=== PATIENT | male | born 1950 | race Caucasian/White ===

== ENCOUNTER 2018-01-27 12:19 | Outpatient (CLI) | payer OTHER ==
[2018-01-27 14:11] LABS: #Basophils 0.1 thou/uL (0.0-0.2); #Eosinphils 0.2 thou/uL (0.0-0.7); #Lymphocytes 1.5 thou/uL (1.20-3.40); #Monocytes 0.7 thou/uL (0.11-0.59); #Neutrophils 5.2 thou/uL (1.40-6.50); %Basophils 0.8 % (0.0-1.0); %Eosinophils 2.3 % (0.0-10.0); %Monocytes 8.5 % (0.0-10.0); %Neutrophils 68.4 % (42.0-75.0); Hemoglobin 14.8 g/dL (14.0-18.0); Mean Corpuscular HGB CONC 31.6 g/dL (32.0-36.0); Mean Corpuscular Hemoglobin 29.6 pg (27.0-31.0); Mean Corpuscular Volume 93.8 fl (80.0-94.0); Mean Platelet Volume 8.4 fL (7.4-10.4); Platelet Count 215 thou/uL (130-400); RBC Distribution Width 13.4 % (11.5-14.5); Red Blood Cell (RBC) Count 5.01 mill/uL (4.70-6.10); White Blood Cell (WBC) Count 7.6 thou/uL (4.8-10.8)
[2018-01-27 14:16] LABS: Bilirubin Negative (Negative); Blood, Urine Negative (Negative); Clarity CLEAR (Clear); Glucose, Urine (Dipstick) Negative (Negative); Leukocyte Negative (Negative); Nitrite Negative (Negative); Protein, Urine (Dipstick) Negative (Neg-Trace); Specific Gravity, Urine 1.015 (1.002-1.036); Urobilinogen 0.2 mg/dL (0.2-1.0); pH, Urine 5.5 (5.0-9.0)
[2018-01-27 14:17] LABS: Prothrombin Time 13.6 SEC (12.0-14.7)
[2018-01-27 14:19] LABS: Bacteria/HPF None Seen HPF (None Seen); Hyaline Casts/LPF 0-3 HYALINE CAST LPF (0-3 Hyaline); RBC/HPF 0-3 HPF (0-3); Squamous Epithelial None Seen HPF (0-3); WBC/HPF None Seen HPF (0-3)
[2018-01-27 14:38] LABS: Anion Gap 13 mmol/L (10-20); BUN (Urea Nitrogen) 25 mg/dL (8.4-25.7); Calc. Creatinine Clearance 0 mL/min (70-130); Calcium 9.7 mg/dL (7.8-10.44); Carbon Dioxide 25 mmol/L (23-31); Chloride 102 mmol/L (98-107); Estimated GFR-MDRD 56; Glucose 107 mg/dL (80-115); Potassium 3.8 mmol/L (3.5-5.1); Sodium 136 mmol/L (136-145)
== END 2018-01-27 12:20 | disposition home or self-care (01) ==
LOC: LABBT 12:19
PROVIDERS: ATTEND Orthopaedic Surgery
DX: Z01.818 Encounter for other preprocedural examination (principal); M17.12 Unilateral primary osteoarthritis, left knee
CPT/HCPCS: 80048; 81001; 85025; 85610; 86850; 86900; 86901; 87081; 93005; 93010

== ENCOUNTER 2018-01-27 12:30 | Inpatient (IN) | payer OTHER ==
[2018-01-27 12:36] VITALS: BMI 33.5
[2018-02-02] MEDS ORDERED: CEFAZOLIN/Water 2 GM/20 ML SYRINGE ONE (06:12)
[2018-02-02] MEDS ORDERED: Bupivacaine 0.5% 10 ML VIAL ONE ×2 (06:16→06:25)
[2018-02-02] MEDS ORDERED: Morphine 2 MG/ML SYRINGE ONE (06:25)
[2018-02-02] MEDS ORDERED: Midazolam HCl 2 mg/2 ml Vial ONE (06:25)
[2018-02-02] MEDS ORDERED: Ropivacaine 0.2% HCl/PF 20 ML ONE (06:28)
[2018-02-02] MEDS ORDERED: Vancomycin HCl 1.5 GM in Sodium Chloride 0.9% 250 ML 300 ML IVPB SCH ×3 (06:30→20:30)
[2018-02-02 06:48] LABS: INR-International Normal Ratio 1.1; Prothrombin Time 14.1 SEC (12.0-14.7)
[2018-02-02] MEDS ORDERED: traMADol HCl 50 MG TAB PO PRN ×2 (07:08→09:01)
[2018-02-02] MEDS ORDERED: Ondansetron HCl/PF 4 MG/2 ML Vial IVP PRN ×3 (07:08→09:23)
[2018-02-02] MEDS ORDERED: Promethazine HCl 25 MG/ML VIAL IM PRN ×3 (07:08→09:23)
[2018-02-02] MEDS ORDERED: HYDROcodone/Acetaminophen 10/325 mg Tablet PO PRN (07:08)
[2018-02-02] MEDS ORDERED: Ropivacaine 0.2% 550 ML 550 ML NERVE BLCK SCH (07:08)
[2018-02-02] MEDS ORDERED: Fentanyl 100 MCG/2 ML VIAL IV PRN (07:10)
[2018-02-02] MEDS ORDERED: Tranexamic Acid 1,000 MG in Sodium Chloride 0.9% 100 ML IVPB SCH (09:00)
[2018-02-02] MEDS ORDERED: diphenhydrAMINE 25 MG CAP PO PRN (09:01)
[2018-02-02] MEDS ORDERED: Acetaminophen 325 MG TAB PO PRN (09:01)
[2018-02-02] MEDS ORDERED: Zolpidem Tartrate 5 MG TAB PO PRN (09:01)
[2018-02-02] MEDS ORDERED: Promethazine HCl 25 MG/ML VIAL SLOW IVP PRN (09:23)
[2018-02-02] MEDS ORDERED: Morphine Sulfate 2 MG/ML SYRINGE SLOW IVP PRN (09:23)
[2018-02-02] MEDS ORDERED: Ondansetron HCl/PF 4 MG/2 ML Vial ONE (09:27)
[2018-02-02] MEDS ORDERED: PROPOFOL 200 MG/20 ML VIAL ONE (09:27)
[2018-02-02] MEDS ORDERED: PHENYLEPHRINE-NS 100 MCG/ML 10 ML SYRINGE ONE (09:27)
[2018-02-02] MEDS ORDERED: Dexamethasone 20 MG/5 ML VIAL ONE (09:27)
[2018-02-02] MEDS ORDERED: Ropivacaine 0.5% HCl/PF (150 MG/30 ML VIAL) ONE (09:46)
[2018-02-02] MEDS: Sodium Chloride 0.9% 1,000 ML IV SCH ×2 (10:21→19:15)
[2018-02-02] MEDS ORDERED: Dextrose 5% in Water 1,000 ML IV PRN (11:41)
[2018-02-02] MEDS ORDERED: Dextrose 50% Abboject 50 ML SYRINGE SLOW IVP PRN (11:41)
[2018-02-02] MEDS ORDERED: HumaLOG 300 UNITS/3 ML VIAL SC PRN ×2 (11:41)
--- NOTE | 2018-02-02 11:45 | OP ---
DATE OF PROCEDURE: 02/02/2018 PREOPERATIVE DIAGNOSIS: Left knee osteoarthrosis. POSTOPERATIVE DIAGNOSIS: Left knee osteoarthrosis. PROCEDURE PERFORMED: Left total knee replacement using Leftronic pinless navigation. SURGEON: Rahat Vitale M.D. ASSISTANTS: Tae Rivera as well as DANIEL Bernard BLOOD LOSS: Minimal. COMPLICATIONS: None. He had a general anesthetic well as preoperative blocks. IMPLANTS: To the left knee is Triathlon total knee system, the femur was size 5 cruciate retaining f emur. We used a size 4 universal tibial baseplate, with 4 x 9 mm CSX3 tibial bearing and an asymmetr ic 32 x 10 X3 patella. CONDITION: He did go to the recovery room in stable condition. INDICATIONS: A 67-year-old male who has failed nonoperative treatment for left knee arthritis and at this time wished to have his knee replaced. PROCEDURE IN DETAIL: After all appropriate consent forms were explained and signed, the patient was taken back to the Operating Room and at this time was given general anesthetic. Once the level of ane sthesia was appropriate, a well-padded tourniquet was placed on the left leg and the leg was then pre pped and draped in standard surgical fashion. The limb was exsanguinated and tourniquet taken up to 3 00 mmHg. Midline incision was made with a 10 blade down through the skin and subcutaneous tissue. Bov ie electrocautery was used to coagulate any brisk venous bleeding. A new blade was used to make a med ial parapatellar arthrotomy. Small subperiosteal release was performed medially and excess fat pad wa s removed. The knee was flexed up to gain access to the femur. The femur was navigated and distal fem oral resection was made. Epicondylar access was used to align our sizing jig and this was pinned in p lace. We sized our femur to be a size 5 cruciate retaining femur, :1 cutting block was applied and pi nned. Anterior and posterior chamfer cuts were then made. We navigated out our proximal tibia and mad e our proximal tibial resection. Spreaders were used to remove any posterior osteophytes off the back of the femur as well as remaining meniscal tissue. A long alignment jaye was then used to achieve cor rect rotation of our tibial baseplate and a size 4 was chosen. This was pinned in place. We trialed t he polyethylene and a 4 x 9 mm CSX3 polyethylene gave us full extension and good stability throughout range of motion. Two towel clips and a saw were used to cut our patella. Three lug nuts were drilled and asymmetric 32 x 10 X3 patella was trialed which sat nicely in the trochlear groove. We then dril led our femur and punched our tibia. All components were removed. The knee was thoroughly irrigated a nd dried. Cement was mixed into the cement gun on the back table. Components were then placed. The kn ee was held out in full extension until the cement had dried. All excess bone cement was removed. Mu ltiple #2 Vicryl stitches as well as a Quill was used to close our extensor mechanism. 0 Quill follow ed by a running Monoderm was then used to close the skin. Surgicel glue was then used on the skin. On ce this had dried, soft tissue dressing was applied to the limb, tourniquet was let down, and the toe s pinked up nicely. The patient was then awakened and taken to the Recovery Room in stable condition . All counts were correct at the end of the case. The patient did receive preoperative IV antibiotics . The patient was injected with Exparel for postoperative pain relief.
--- NOTE | 2018-02-02 11:46 | PDOC.PN ---
- Subjective Encounter Start Date: 02/02/18 Encounter Start Time: 11:20 Subjective: no sob or palp -: moving all extremities -: numbness of left leg is weaning, on nr block - Objective MAR Reviewed: Yes Vital Signs & Weight: Vital Signs (12 hours) Temp Pulse Resp BP Pulse Ox 02/02/18 10:00 98.1 F 71 18 134/74 96 Weight Weight 240 lb Phys Exam - Physical Examination HEENT: PERRLA, moist MMs Neck: no JVD, supple Respiratory: no wheezing, no rales Cardiovascular: RRR, no significant murmur Gastrointestinal: soft, non-tender, no distention, positive bowel sounds Musculoskeletal: no edema, pulses present Neurological: non-focal, moves all 4 limbs Psychiatric: normal affect, A&O x 3 Dx/Plan (1) Status post total knee replacement, left Code(s): Z96.652 - PRESENCE OF LEFT ARTIFICIAL KNEE JOINT Status: Acute (2) LV (left ventricular) mural thrombus Code(s): [id number] - Status: Acute Comment: diagnosed 2 months back per patient (3) Cardiomyopathy Code(s): I42.9 - CARDIOMYOPATHY, UNSPECIFIED Status: Chronic Qualifiers: Cardiomyopathy type: ischemic Qualified Code(s): I25.5 - Ischemic cardiomyopathy (4) HTN (hypertension) Code(s): I10 - ESSENTIAL (PRIMARY) HYPERTENSION Status: Chronic Qualifiers: Hypertension type: essential hypertension Qualified Code(s): I10 - Essential (primary) hypertension (5) DM type 2 (diabetes mellitus, type 2) Status: Chronic Qualifiers: Diabetes mellitus mcfp insulin use: without intermediate project manager use Diabetes mellitus complication status: with unspecified complications Qualified Code(s) : E11.8 - Type 2 diabetes mellitus with unspecified complications (6) Dyslipidemia Code(s): E78.5 - HYPERLIPIDEMIA, UNSPECIFIED Status: Chronic (7) Pacemaker Code(s): Z95.0 - PRESENCE OF CARDIAC PACEMAKER Status: Chronic Comment: has AICD with dual chamber pacer (8) BPH (benign prostatic hyperplasia) Code(s): N40.0 - BENIGN PROSTATIC HYPERPLASIA WITHOUT LOWER URINRY TRACT SYMP Status: Chronic Qualifiers: Lower urinary tract symptom presence: unspecified whether lower urinary tract symptoms present Qualified Code(s): N40.0 - Benign prostatic hyperplasia without lower urinary tract symptoms - Plan is on asp daily, coreg, cozaar, lipitor and lasix -: hold spironolactone and hctz for today -: lv thrombus anticoagulation per cardio/ortho advice -: post knee dvt prophylaxis per ortho advice -: on metformin with coverage * . ropivacaine nr block, fentanyl, ultram prn for pain. Will f/u Review of Systems - Medications/Allergies Allergies/Adverse Reactions: Allergies Allergy/AdvReac Type Severity Reaction Status Date / Time No Known Allergies Allergy Verified 01/27/18 12:36 Medications: Current Medications Acetaminophen (Tylenol) 650 mg PO Q4H PRN PRN Reason: WYNNE/ T > 101F; Mild Pain (1-3) Hydrocodone Bitart/Acetaminophen ([place] 10/325) 1 tab PO Q4H PRN PRN Reason: Pain (1-3) Hydrocodone Bitart/Acetaminophen ([place] 10/325) 2 tab PO Q4H PRN PRN Reason: PAIN (4-6) Aspirin (Ecotrin) 81 mg PO DAILY [facility] Aspirin (Ecotrin) 81 mg PO DAILY [facility] Atorvastatin Calcium (Lipitor) 40 mg PO DAILY [facility] Carvedilol (Coreg) 6.25 mg PO BID [facility] Cefazolin Sodium (Ancef) 2 gm SLOW IVP 1500,2300 [facility] Stop: 02/02/18 23:01 Dextrose/Water (Dextrose 50%) 25 gm SLOW IVP PRN PRN PRN Reason: Hypoglycemia Diphenhydramine HCl (Benadryl) 25 mg PO Q6H PRN PRN Reason: Itching Fentanyl (Sublimaze) 50 mcg IV Q1H PRN PRN Reason: BREAKTHRU PAIN Ferrous Gluconate (Fergon) 324 mg PO BID [facility] Furosemide (Lasix) 40 mg PO DAILY [facility] Glucagon (Glucagon) 1 mg IM PRN PRN PRN Reason: Hypoglycemia Vancomycin HCl 1.5 gm/ Sodium (Chloride) 300 mls @ 200 mls/hr IVPB NOW [facility] Stop: 02/02/18 12:00 Last Admin: 02/02/18 10:21 Dose: Not Given Ropivacaine (Ropivacaine 0.2% 550 Ml) 550 mls @ 6 mls/hr NERVE BLCK INF [facility] Sodium Chloride (Normal Saline 0.9%) 1,000 mls @ 100 mls/hr IV .Q10H [facility] Last Admin: 02/02/18 10:21 Dose: Not Given Tranexamic Acid 1,000 mg/ (Sodium Chloride) 110 mls @ 200 mls/hr IVPB ONE [facility] Stop: 02/02/18 12:00 Vancomycin HCl 1.5 gm/ Sodium (Chloride) 300 mls @ 200 mls/hr IVPB 2030 [facility] Stop: 02/02/18 22:30 Dextrose/Water (D5w) 1,000 mls @ 0 mls/hr IV .Q0M PRN; As Directed PRN Reason: Hypoglycemia Insulin Human Lispro (Humalog) 0 units SC .MILD SLIDING SCALE PRN PRN Reason: Mild Correctional Scale Insulin Human Lispro (Humalog) 0 units SC .BEDTIME SLIDING SC PRN PRN Reason: Bedtime Correctional Scale Iron/Minerals/Multivitamins (Theragran M) 1 tab PO DAILY [facility] Ketorolac Tromethamine (Toradol) 15 mg IVP Q6H PRN PRN Reason: Moderate Pain (4-6) Stop: 02/05/18 07:09 Losartan Potassium (Cozaar) 25 mg PO DAILY [facility] Metformin HCl (Glucophage) 500 mg PO [facility] Morphine Sulfate (Pacu-Morphine Sulfate) 2 mg SLOW IVP Q10MIN PRN PRN Reason: Moderate to Severe Pain (6-10) Stop: 02/02/18 12:23 Multivitamins (Theragran) 1 tab PO DAILY [facility] Ondansetron HCl (Zofran) 4 mg IVP Q6H PRN PRN Reason: Nausea/Vomiting Ondansetron HCl (Pacu-Zofran) 4 mg IVP ONE PRN PRN Reason: Nausea/Vomiting Stop: 02/02/18 12:23 Promethazine HCl (Phenergan) 12.5 mg IM Q4H PRN PRN Reason: Nausea Promethazine HCl (Pacu-Phenergan) 6.25 mg SLOW IVP ONE PRN PRN Reason: Nausea/Vomiting Stop: 02/02/18 12:23 Promethazine HCl (Pacu-Phenergan) 6.25 mg IM ONE PRN PRN Reason: Nausea/Vomiting Stop: 02/02/18 12:23 Senna/Docusate Sodium (Senokot S) 2 tab PO BID [facility] Sodium Chloride (Flush - Normal Saline) 10 ml IVF PRN PRN PRN Reason: Saline Flush Tamsulosin HCl (Flomax) 0.4 mg PO DAILY [facility] Tramadol HCl (Ultram) 50 mg PO Q6H PRN PRN Reason: Mild Pain (1-3) Tramadol HCl (Ultram) 100 mg PO Q6H PRN PRN Reason: Moderate Pain 4-6 Zolpidem Tartrate (Ambien) 5 mg PO HSPRN PRN PRN Reason: Insomnia
[2018-02-02] MEDS: CEFAZOLIN/Water 2 GM/20 ML SYRINGE SLOW IVP SCH ×2 (15:03→23:24)
[2018-02-02] MEDS: Carvedilol 6.25 MG TAB PO SCH (21:26)
[2018-02-02] MEDS: Zolpidem Tartrate 5 MG TAB PO PRN (23:36)
[2018-02-03] MEDS: Sodium Chloride 0.9% 1,000 ML IV SCH ×2 (04:19→16:59)
[2018-02-03 06:01] LABS: INR-International Normal Ratio 2.1; PTT 39.9 SEC (22.9-36.1); Prothrombin Time 24.2 SEC (12.0-14.7)
[2018-02-03 06:02] LABS: Hemoglobin 11.7 g/dL (14.0-18.0); Mean Corpuscular HGB CONC 31.6 g/dL (32.0-36.0); Mean Corpuscular Hemoglobin 29.3 pg (27.0-31.0); Mean Corpuscular Volume 92.6 fl (80.0-94.0); Mean Platelet Volume 8.4 fL (7.4-10.4); Platelet Count 190 thou/uL (130-400); RBC Distribution Width 13.1 % (11.5-14.5)
[2018-02-03 06:19] LABS: Anion Gap 13 mmol/L (10-20); BUN (Urea Nitrogen) 26 mg/dL (8.4-25.7); Calc. Creatinine Clearance 85 mL/min (70-130); Carbon Dioxide 24 mmol/L (23-31); Chloride 107 mmol/L (98-107); Estimated GFR-MDRD 56; Glucose 127 mg/dL (80-115); Potassium 4.6 mmol/L (3.5-5.1); Sodium 139 mmol/L (136-145)
[2018-02-03] MEDS: HYDROcodone/Acetaminophen 10/325 mg Tablet PO PRN ×2 (07:33→12:00)
[2018-02-03] MEDS: Losartan 25 MG TAB PO SCH (07:34)
[2018-02-03] MEDS: Carvedilol 6.25 MG TAB PO SCH ×2 (07:34→21:32)
[2018-02-03] MEDS: Aspirin 81 mg Enteric Coated Tablet PO SCH ×2 (07:34→16:57)
[2018-02-03] MEDS: Ferrous Gluconate 324 MG TAB PO SCH ×2 (07:35→21:32)
[2018-02-03] MEDS: Furosemide 40 MG TAB PO SCH (07:35)
[2018-02-03] MEDS: Senokot S 8.6-50 MG TAB PO SCH ×2 (07:35→21:31)
[2018-02-03] MEDS: metFORMIN 500 MG TAB PO SCH (07:35)
[2018-02-03] MEDS: Tamsulosin HCl 0.4 MG CAP PO SCH (07:35)
[2018-02-03] MEDS: Atorvastatin Calcium 40 MG TAB PO SCH (07:36)
[2018-02-03] MEDS: Multivitamin W/ Minerals 1 TAB PO SCH (07:36)
--- NOTE | 2018-02-03 08:23 | CON ---
DATE OF CONSULTATION: 02/02/2018 REASON FOR CONSULTATION: Assist with anticoagulation therapy and management. HISTORY OF PRESENT ILLNESS: Mr. Contreras is a very pleasant 67-year-old gentleman with previous histor y of nonischemic cardiomyopathy, who recently underwent knee surgery. From a CV standpoint, Mr. Contreras recently was diagnosed with an apical thrombus. He was placed on an ticoagulation therapy. He has been off anticoagulation therapy for the last 7 days in preparation fo r surgery. PAST MEDICAL HISTORY: As above. HOME MEDICATIONS: Include aspirin, losartan, Coreg, Zocor, and Eliquis. ALLERGIES: PENICILLIN. FAMILY HISTORY: Negative for CAD. SOCIAL HISTORY: No current tobacco or alcohol use. REVIEW OF SYSTEMS: Ten-point review of systems reviewed and as above, otherwise negative. PHYSICAL EXAMINATION: VITAL SIGNS: Blood pressure 134/74, pulse 71, temperature 98.1. GENERAL: Patient is a pleasant male, who is in no acute distress. The patient appears his stated ag e. NEUROLOGIC: The patient is alert and oriented times 3 with no focal neurologic deficits. HEENT: Sclerae without icterus. Mouth has moist mucous membranes with normal pallor. NECK: No JVD. Carotid upstroke brisk. No bruits bilaterally. LUNGS: Clear to auscultation with unlabored respirations. BACK: No scoliosis or kyphosis. CARDIAC: Regular rate and rhythm with normal S1 and S2. No S3 or S4 noted. No significant rubs, mu rmurs, thrills, or gallops noted throughout the precordium. PMI is not displaced. There is no ana lilia ternal heave. ABDOMEN: Soft, nontender, nondistended. No peritoneal signs present. No hepatosplenomegaly. No abnormal striae. EXTREMITIES: 2+ femoral and 2+ dorsalis pedis pulses. No cyanosis, clubbing, or edema. SKIN: No gross abnormalities. IMPRESSION: 1. Apical thrombus. 2. Nonischemic cardiomyopathy. RECOMMENDATIONS: From a CV standpoint, I recommend restarting anticoagulation therapy once feasible per Dr. Rahat Vitale. After discussion with Dr. Rahat Vitale, it sounds like tomorrow will be his firs t dose of Eliquis. I would certainly agree. Otherwise, we will continue rehabilitation as recommend ed. We would recommend continuing to keep patient in ortho.
[2018-02-03] MEDS ORDERED: Hydrochlorothiazide 25 MG TAB PO SCH (09:00)
[2018-02-03] MEDS ORDERED: Spironolactone 25 MG TAB PO SCH (09:00)
--- NOTE | 2018-02-03 16:49 | PDOC.PN ---
- Subjective Encounter Start Date: 02/03/18 Encounter Start Time: 10:00 Patient is seen today, sitting on chair with leg extended, pain is well controlled. pt is Started on Eliquis today. - Objective MAR Reviewed: Yes Vital Signs & Weight: Vital Signs (12 hours) Temp Pulse Resp BP BP BP Pulse Ox 02/03/18 15:22 97.5 F L 76 16 126/79 94 L 02/03/18 11:00 97.5 F L 72 18 111/71 98 02/03/18 08:10 98.4 F 70 18 94/56 L 93 L 02/03/18 08:00 98.4 F 70 18 93 L 02/03/18 07:34 132/63 Weight Admit Weight 240 lb Weight 240 lb I&O: 02/02/18 02/03/18 02/04/18 06:59 06:59 06:59 Intake Total 2600 Output Total 950 Balance 1650 Result Diagrams: 02/03/18 05:22 02/03/18 05:22 Additional Labs: Accuchecks 02/03/18 02/03/18 02/03/18 16:14 11:05 05:29 POC Glucose 167 H 116 H 117 H 02/02/18 20:33 POC Glucose 185 H Radiology Reviewed by me: Yes EKG Reviewed by me: Yes Phys Exam - Physical Examination HEENT: PERRLA Neck: no nodes, no JVD Respiratory: no wheezing, no rales Cardiovascular: RRR, no significant murmur Gastrointestinal: soft, non-tender Musculoskeletal: no edema, pulses present Neurological: non-focal, normal sensation Dx/Plan (1) Status post total knee replacement, left Code(s): Z96.652 - PRESENCE OF LEFT ARTIFICIAL KNEE JOINT Status: Acute Comment: pain is well controlled, PT/OT, plan for ortho (2) BPH (benign prostatic hyperplasia) Code(s): N40.0 - BENIGN PROSTATIC HYPERPLASIA WITHOUT LOWER URINRY TRACT SYMP Status: Chronic Qualifiers: Lower urinary tract symptom presence: unspecified whether lower urinary tract symptoms present Qualified Code(s): N40.0 - Benign prostatic hyperplasia without lower urinary tract symptoms (3) Cardiomyopathy Code(s): I42.9 - CARDIOMYOPATHY, UNSPECIFIED Status: Chronic Qualifiers: Cardiomyopathy type: ischemic Qualified Code(s): I25.5 - Ischemic cardiomyopathy Comment: Patient is on BB, rstarted on Eliquis (4) DM type 2 (diabetes mellitus, type 2) Status: Chronic Qualifiers: Diabetes mellitus half-way insulin use: without termite control servicer use Diabetes mellitus complication status: with unspecified complications Qualified Code(s) : E11.8 - Type 2 diabetes mellitus with unspecified complications Comment: [place], Well controlled BG in range. (5) Dyslipidemia Code(s): E78.5 - HYPERLIPIDEMIA, UNSPECIFIED Status: Chronic Comment: stbale on Statins (6) HTN (hypertension) Code(s): I10 - ESSENTIAL (PRIMARY) HYPERTENSION Status: Chronic Qualifiers: Hypertension type: essential hypertension Qualified Code(s): I10 - Essential (primary) hypertension Comment: well controllled will continue to Monitor. - Plan cont current plan of care, plan discussed w/ family, PT/OT, incentive spirometry , DVT proph w/lovenox * . - Discharge Day Encounter end time: 10:35 Review of Systems - Review of Systems Eyes: negative: Pain, Vision Change, Conjunctivae Inflammation, Eyelid Inflammation, Redness, Other ENT: negative: Ear Pain, Ear Discharge, Nose Pain, Nose Discharge, Nose Congestion, Mouth Pain, Mouth Swelling, Throat Pain, Throat Swelling, Other Respiratory: negative: Cough, Dry, Shortness of Breath, Hemoptysis, SOB with Excertion, Pleuritic Pain, Sputum, Wheezing Cardiovascular: negative: chest pain, palpitations, orthopnea, paroxysmal nocturnal dyspnea, edema, light headedness, other Genitourinary: negative: Dysuria, Frequency, Incontinence, Hematuria, Retention , Other Musculoskeletal: negative: Neck Pain, Shoulder Pain, Arm Pain, Back Pain, Hand Pain, Leg Pain, Foot Pain, Other Skin: negative: Rash, Lesions, Ehsan, Bruising, Other - Medications/Allergies Allergies/Adverse Reactions: Allergies Allergy/AdvReac Type Severity Reaction Status Date / Time No Known Allergies Allergy Verified 01/27/18 12:36 Medications: Current Medications Acetaminophen (Tylenol) 650 mg PO Q4H PRN PRN Reason: WYNNE/ T > 101F; Mild Pain (1-3) Hydrocodone Bitart/Acetaminophen ([place] 10/325) 1 tab PO Q4H PRN PRN Reason: Pain (1-3) Hydrocodone Bitart/Acetaminophen ([place] 10/325) 2 tab PO Q4H PRN PRN Reason: PAIN (4-6) Last Admin: 02/03/18 12:00 Dose: 2 tab Aspirin (Ecotrin) 81 mg PO DAILY [facility] Last Admin: 02/03/18 07:34 Dose: 81 mg Aspirin (Ecotrin) 81 mg PO DAILY [facility] Atorvastatin Calcium (Lipitor) 40 mg PO DAILY [facility] Last Admin: 02/03/18 07:36 Dose: 40 mg Carvedilol (Coreg) 6.25 mg PO BID [facility] Last Admin: 02/03/18 07:34 Dose: 6.25 mg Dextrose/Water (Dextrose 50%) 25 gm SLOW IVP PRN PRN PRN Reason: Hypoglycemia Diphenhydramine HCl (Benadryl) 25 mg PO Q6H PRN PRN Reason: Itching Fentanyl (Sublimaze) 50 mcg IV Q1H PRN PRN Reason: BREAKTHRU PAIN Ferrous Gluconate (Fergon) 324 mg PO BID [facility] Last Admin: 02/03/18 07:35 Dose: 324 mg Furosemide (Lasix) 40 mg PO DAILY [facility] Last Admin: 02/03/18 07:35 Dose: 40 mg Glucagon (Glucagon) 1 mg IM PRN PRN PRN Reason: Hypoglycemia Ropivacaine (Ropivacaine 0.2% 550 Ml) 550 mls @ 6 mls/hr NERVE BLCK INF [facility] Sodium Chloride (Normal Saline 0.9%) 1,000 mls @ 100 mls/hr IV .Q10H [facility] Last Admin: 02/03/18 04:19 Dose: Not Given Dextrose/Water (D5w) 1,000 mls @ 0 mls/hr IV .Q0M PRN; As Directed PRN Reason: Hypoglycemia Insulin Human Lispro (Humalog) 0 units SC .MILD SLIDING SCALE PRN PRN Reason: Mild Correctional Scale Insulin Human Lispro (Humalog) 0 units SC .BEDTIME SLIDING SC PRN PRN Reason: Bedtime Correctional Scale Iron/Minerals/Multivitamins (Theragran M) 1 tab PO DAILY [facility] Last Admin: 02/03/18 07:36 Dose: 1 tab Ketorolac Tromethamine (Toradol) 15 mg IVP Q6H PRN PRN Reason: Moderate Pain (4-6) Stop: 02/05/18 07:09 Losartan Potassium (Cozaar) 25 mg PO DAILY [facility] Last Admin: 02/03/18 07:34 Dose: 25 mg Metformin HCl (Glucophage) 500 mg PO QAM-WM [facility] Last Admin: 02/03/18 07:35 Dose: 500 mg Multivitamins (Theragran) 1 tab PO DAILY [facility] Ondansetron HCl (Zofran) 4 mg IVP Q6H PRN PRN Reason: Nausea/Vomiting Promethazine HCl (Phenergan) 12.5 mg IM Q4H PRN PRN Reason: Nausea Senna/Docusate Sodium (Senokot S) 2 tab PO BID [facility] Last Admin: 02/03/18 07:35 Dose: 2 tab Sodium Chloride (Flush - Normal Saline) 10 ml IVF PRN PRN PRN Reason: Saline Flush Tamsulosin HCl (Flomax) 0.4 mg PO DAILY [facility] Last Admin: 02/03/18 07:35 Dose: 0.4 mg Tramadol HCl (Ultram) 50 mg PO Q6H PRN PRN Reason: Mild Pain (1-3) Tramadol HCl (Ultram) 100 mg PO Q6H PRN PRN Reason: Moderate Pain 4-6 Zolpidem Tartrate (Ambien) 5 mg PO HSPRN PRN PRN Reason: Insomnia Last Admin: 02/02/18 23:36 Dose: 5 mg
[2018-02-03] MEDS: Multivit, Therapeutic 1 TAB PO SCH (16:57)
[2018-02-03] MEDS: Ketorolac Tromethamine 30 MG/ML VIAL IVP PRN (18:13)
[2018-02-03] MEDS ORDERED: Apixaban 5 MG TAB PO SCH (18:45)
[2018-02-03] MEDS: Zolpidem Tartrate 5 MG TAB PO PRN (21:36)
[2018-02-03] MEDS: traMADol HCl 50 MG TAB PO PRN (21:37)
[2018-02-04] MEDS: Sodium Chloride 0.9% 1,000 ML IV SCH ×3 (01:57→21:04)
[2018-02-04 04:27] LABS: Hemoglobin 11.1 g/dL (14.0-18.0); Mean Corpuscular HGB CONC 32.4 g/dL (32.0-36.0); Mean Corpuscular Hemoglobin 29.9 pg (27.0-31.0); Mean Corpuscular Volume 92.1 fl (80.0-94.0); Mean Platelet Volume 8.1 fL (7.4-10.4); Platelet Count 158 thou/uL (130-400); RBC Distribution Width 13.3 % (11.5-14.5); Red Blood Cell (RBC) Count 3.71 mill/uL (4.70-6.10); White Blood Cell (WBC) Count 9.9 thou/uL (4.8-10.8)
[2018-02-04] MEDS: metFORMIN 500 MG TAB PO SCH (08:01)
[2018-02-04] MEDS: Senokot S 8.6-50 MG TAB PO SCH ×2 (08:01→21:06)
[2018-02-04] MEDS: traMADol HCl 50 MG TAB PO PRN ×2 (08:02→15:28)
[2018-02-04] MEDS: Furosemide 40 MG TAB PO SCH (08:02)
[2018-02-04] MEDS: Multivitamin W/ Minerals 1 TAB PO SCH (08:02)
[2018-02-04] MEDS: Atorvastatin Calcium 40 MG TAB PO SCH (08:02)
[2018-02-04] MEDS: Tamsulosin HCl 0.4 MG CAP PO SCH (08:03)
[2018-02-04] MEDS: Ferrous Gluconate 324 MG TAB PO SCH ×2 (08:03→21:05)
[2018-02-04] MEDS: Aspirin 81 mg Enteric Coated Tablet PO SCH ×2 (08:03→08:04)
[2018-02-04] MEDS: Multivit, Therapeutic 1 TAB PO SCH (08:04)
[2018-02-04] MEDS: Carvedilol 6.25 MG TAB PO SCH ×2 (08:10→21:05)
[2018-02-04] MEDS: Losartan 25 MG TAB PO SCH (08:10)
[2018-02-04] MEDS ORDERED: ISOVUE-370 76%-LOCM 1 ML ONE (09:33)
--- NOTE | 2018-02-04 13:12 | CT ---
CT ANGIO NECK WITH CONTRAST: Date: 02/04/18 Multiple axial tomograms obtained through neck following angio protocol with multiplanar reconstructi on and 3D postprocessing. INDICATIONS: Right hemianopsia. Loss of vision in right eye. FINDINGS: There is mild atherosclerotic change at the origin of the arch vessels; however, no stenosis identifi ed at the origin of the arch vessels. Left common carotid artery is unremarkable with minimal atherosclerotic change. There is atherosclerotic change seen at the left bulb and proximal left ICA. Mild calcification and s oft thrombus is present. This does result in mild to moderate stenosis in the proximal left ICA. Degr ee of stenosis is estimated in the 40% range according to NASCET criteria when comparison is made to the more distal left ICA lumen diameter. Right common carotid is unremarkable with mild atherosclerotic change. There is mild atherosclerotic change in the right bulb and proximal right ICA with both calcified and soft plaque present. This does not appear to result in significant stenosis. There is mild irregular ity in the lumen. The more distal ICA appears unremarkable bilaterally. Vertebral arteries are patent and symmetric. Images of the visualized lung cristobal show a focal area of pleural based opacity in the peripheral lef t mid lung measuring approximately 1.5 cm. This may represent a focal area of pleural based atelectas is; however, further evaluation with chest CT is recommended. IMPRESSION: 1. Mild to moderate atherosclerotic changes in both bulbs and proximal ICAs. There is moderate steno sis in the proximal left ICA as described above. 2. Images through the lungs reveal a pleural based opacity in the peripheral left lung measuring up to 1.5 cm. Recommend further evaluation with elective chest CT. POS: OFF
[2018-02-04] MEDS: Apixaban 5 MG TAB PO SCH (17:32)
[2018-02-04] MEDS: Ketorolac Tromethamine 30 MG/ML VIAL IVP PRN (17:39)
--- NOTE | 2018-02-04 19:30 | CON ---
DATE OF CONSULTATION: 02/04/2018 REFERRING PHYSICIAN: Dr. Rahat Vitale. REASON FOR CONSULTATION: Acute onset left side vision loss. HISTORY OF PRESENT ILLNESS: Mr. Contreras is a pleasant 67-year-old male who has been consulted for evaluation of acute onset left-sided vision loss. History is obtained from daughter who was present at bedside. Daughter reports that patient was undergoing left total knee replacement. He has a history of apical thrombus in his heart. This was diagnosed in October of last year. He has been on Eliquis 5 mg once a day for this. In anticipation for the surgery on , he was asked to hold the Eliquis for 2 days before the surgery. On yesterday, patient started noticing blurred vision. Around lunchtime, at noon, he noticed a sudden onset of dizziness and feeling off balance. He also noticed vision loss in the left eye. He did not report this to anyone and it was felt that it may have been just due to the medication that he received for his pain. His vision continued to be not improved for which he had told the physician Dr. Vitale today. He states that he has a loss of vision in the left side. He denies any headache, chest pain, palpitation, numbness, tingling on his face or upper extremities. He denies any weakness in upper extremities or right lower extremity. He denies changes in speech or swallowing. PAST MEDICAL HISTORY: Significant for apical thrombus. PAST SURGICAL HISTORY: Significant for recent left total knee replacement. SOCIAL HISTORY: Denies smoking, alcohol use, or illicit drug use. FAMILY HISTORY: Noncontributory. CURRENT MEDICATIONS: Include aspirin, losartan, Coreg, Zocor, and Eliquis. ALLERGIES: Include PENICILLIN. REVIEW OF SYSTEMS: As mentioned, which was negative. PHYSICAL EXAMINATION: VITAL SIGNS: Blood pressure of 119/55, pulse of 72, temperature of 98.1, respirations of 16, O2 sats of 94% on room air. GENERAL: Well-developed, well-nourished male, in no apparent distress. RESPIRATORY: Clear to auscultation bilaterally. CARDIOVASCULAR: Regular rate and rhythm. NEUROLOGIC: Mental status: The patient is awake, alert, oriented x3. Speech and language: Fluent speech. Cranial nerves: Pupils are 3 mm and reactive. He has a left homonymous hemianopsia. Face is symmetric. Tongue and uvula are midline. Motor exam showed normal tone and bulk with a 5/5 strength in both upper extremities and right lower extremity. Sensory: Sensation is intact and symmetric. Deep tendon reflexes 2+ reflexes. Babinski: Plantar responses flexion bilaterally. Coordination intact to [id number] and finger tapping bilaterally. LABORATORY DATA: Reviewed, which included CBC and BMP, which is significant for hemoglobin of 11.1, hematocrit 34.2, glucose of 167, otherwise unremarkable. IMAGING STUDIES: CT angiogram of the neck was reviewed, which showed mild to moderate atherosclerotic changes in both carotid bulbs with 40% stenosis of the proximal left ICA. There was a pleural-based opacity in the peripheral left lung. IMPRESSION: 1. Right occipital ischemic infarct. 2. A 40% right, 40% left ICA stenosis. PLAN: Mr. Contreras is a pleasant 67-year-old male with a history of apical thrombus, who has undergone a left total knee replacement, has noted sudden onset of vision loss in the left side. On exam, he has a left homonymous hemianopsia, this would suggest the right occipital lobe ischemic infarct. This is likely embolic in nature. At this time, I agree with restarting him on Eliquis for secondary stroke prevention. I have discussed with the patient and his daughter and explained that he should not drive until cleared by ophthalmology or by me in my clinic. I will be happy to see him in my clinic in 4-6 weeks post-discharge. I have told him that the recovery is questionable at this point. I will obtain MRI brain without contrast in the morning. I would recommend a consulting stroke team for completion of the stroke core measures. I will be happy to see this patient in my clinic 6 weeks post-discharge. MARGO
[2018-02-05 05:12] LABS: Hemoglobin 11.3 g/dL (14.0-18.0); Mean Corpuscular HGB CONC 33.1 g/dL (32.0-36.0); Mean Corpuscular Hemoglobin 30.2 pg (27.0-31.0); Mean Corpuscular Volume 91.4 fl (80.0-94.0); Mean Platelet Volume 7.8 fL (7.4-10.4); Platelet Count 158 thou/uL (130-400); Red Blood Cell (RBC) Count 3.73 mill/uL (4.70-6.10); White Blood Cell (WBC) Count 8.6 thou/uL (4.8-10.8)
[2018-02-05] MEDS: traMADol HCl 50 MG TAB PO PRN ×3 (07:54→20:17)
[2018-02-05] MEDS: Losartan 25 MG TAB PO SCH (08:32)
[2018-02-05] MEDS: Senokot S 8.6-50 MG TAB PO SCH ×2 (08:33→20:17)
[2018-02-05] MEDS: Aspirin 81 mg Enteric Coated Tablet PO SCH (08:34)
[2018-02-05] MEDS: Multivitamin W/ Minerals 1 TAB PO SCH (08:34)
[2018-02-05] MEDS: Multivit, Therapeutic 1 TAB PO SCH (08:34)
[2018-02-05] MEDS: Ferrous Gluconate 324 MG TAB PO SCH ×2 (08:34→20:18)
[2018-02-05] MEDS: metFORMIN 500 MG TAB PO SCH (08:34)
[2018-02-05] MEDS: Furosemide 40 MG TAB PO SCH (08:34)
[2018-02-05] MEDS: Carvedilol 6.25 MG TAB PO SCH ×2 (08:34→20:18)
[2018-02-05] MEDS: Tamsulosin HCl 0.4 MG CAP PO SCH (08:35)
[2018-02-05] MEDS: Atorvastatin Calcium 40 MG TAB PO SCH (08:35)
--- NOTE | 2018-02-05 09:45 | PDOC.PN ---
- Subjective Encounter Start Date: 02/04/18 Encounter Start Time: 13:00 Patient is seen today, alert and oriented, he is c/o Reduced vision in right Eye since this morning, Pt had MRI which did confirm infacrt of occipetal lobe, - Objective MAR Reviewed: Yes Vital Signs & Weight: Vital Signs (12 hours) Temp Pulse Resp BP BP BP Pulse Ox 02/05/18 08:34 119/73 02/05/18 08:00 98.3 F 65 18 02/05/18 07:30 98.3 F 65 18 154/73 H 95 02/05/18 04:18 97.5 F L 63 20 121/67 93 L 02/04/18 23:59 97.4 F L 67 16 126/71 92 L Weight Admit Weight 240 lb Weight 240 lb I&O: 02/04/18 02/05/18 02/06/18 06:59 06:59 06:59 Intake Total 600 480 Output Total 400 100 Balance 200 380 Result Diagrams: 02/05/18 04:45 02/03/18 05:22 Additional Labs: Accuchecks 02/05/18 02/04/18 02/04/18 06:00 21:15 16:03 POC Glucose 114 H 124 H 118 H 02/04/18 11:03 POC Glucose 109 Radiology Reviewed by me: Yes EKG Reviewed by me: Yes Phys Exam - Physical Examination Right Reduced/ loss of vision, pupil reflex normal. Neck: no nodes, no JVD Respiratory: no wheezing, no rales Cardiovascular: RRR, no significant murmur Gastrointestinal: soft, non-tender Musculoskeletal: no edema, pulses present Neurological: non-focal, normal sensation Lymphatic: no nodes Psychiatric: normal affect, A&O x 3 Dx/Plan (1) Status post total knee replacement, left Code(s): Z96.652 - PRESENCE OF LEFT ARTIFICIAL KNEE JOINT Status: Acute Comment: pain is well controlled, PT/OT, plan for ortho (2) BPH (benign prostatic hyperplasia) Code(s): N40.0 - BENIGN PROSTATIC HYPERPLASIA WITHOUT LOWER URINRY TRACT SYMP Status: Chronic Qualifiers: Lower urinary tract symptom presence: unspecified whether lower urinary tract symptoms present Qualified Code(s): N40.0 - Benign prostatic hyperplasia without lower urinary tract symptoms Comment: stbale, normal urination. (3) Cardiomyopathy Code(s): I42.9 - CARDIOMYOPATHY, UNSPECIFIED Status: Chronic Qualifiers: Cardiomyopathy type: ischemic Qualified Code(s): I25.5 - Ischemic cardiomyopathy Comment: Patient is on BB, rstarted on Eliquis (4) DM type 2 (diabetes mellitus, type 2) Status: Chronic Qualifiers: Diabetes mellitus manager terminal insulin use: without manager terminal use Diabetes mellitus complication status: with unspecified complications Qualified Code(s) : E11.8 - Type 2 diabetes mellitus with unspecified complications Comment: Stbale, Well controlled BG in range. (5) Dyslipidemia Code(s): E78.5 - HYPERLIPIDEMIA, UNSPECIFIED Status: Chronic Comment: stbale on Statins (6) HTN (hypertension) Code(s): I10 - ESSENTIAL (PRIMARY) HYPERTENSION Status: Chronic Qualifiers: Hypertension type: essential hypertension Qualified Code(s): I10 - Essential (primary) hypertension Comment: well controllled will continue to Monitor. (7) Occipital cerebral infarction Code(s): I63.9 - CEREBRAL INFARCTION, UNSPECIFIED Status: Acute Comment: MRI confirmed Stroke ischemic likely from thromboembolism from left ventricle clot, MRI confirmed, pt is on Eliquis, No TPA offered due to high risk of bleeding due to major knee surgery. - Plan cont current plan of care, PT/OT, social media specialist, incentive spirometry, out of bed/ambulate, DVT proph w/lovenox * . - Discharge Day Encounter end time: 13:35 Review of Systems - Review of Systems Eyes: Vision Change ENT: negative: Ear Pain, Ear Discharge, Nose Pain, Nose Discharge, Nose Congestion, Mouth Pain, Mouth Swelling, Throat Pain, Throat Swelling, Other Respiratory: negative: Cough, Dry, Shortness of Breath, Hemoptysis, SOB with Excertion, Pleuritic Pain, Sputum, Wheezing Cardiovascular: negative: chest pain, palpitations, orthopnea, paroxysmal nocturnal dyspnea, edema, light headedness, other Gastrointestinal: negative: Nausea, Vomiting, Abdominal Pain, Diarrhea, Constipation, Melena, Hematochezia, Other Musculoskeletal: negative: Neck Pain, Shoulder Pain, Arm Pain, Back Pain, Hand Pain, Leg Pain, Foot Pain, Other Neurological: Other (Reduced vision right eye). negative: Weakness, Numbness, Incoordination, Change in Speech, Confusion, Seizures - Medications/Allergies Allergies/Adverse Reactions: Allergies Allergy/AdvReac Type Severity Reaction Status Date / Time No Known Allergies Allergy Verified 01/27/18 12:36 Medications: Current Medications Acetaminophen (Tylenol) 650 mg PO Q4H PRN PRN Reason: WYNNE/ T > 101F; Mild Pain (1-3) Hydrocodone Bitart/Acetaminophen ([place] 10/325) 1 tab PO Q4H PRN PRN Reason: Pain (1-3) Hydrocodone Bitart/Acetaminophen ([place] 10/325) 2 tab PO Q4H PRN PRN Reason: PAIN (4-6) Last Admin: 02/03/18 12:00 Dose: 2 tab Apixaban (Eliquis) 5 mg PO 1700 [facility] Last Admin: 02/04/18 17:32 Dose: 5 mg Aspirin (Ecotrin) 81 mg PO DAILY [facility] Last Admin: 02/05/18 08:34 Dose: 81 mg Atorvastatin Calcium (Lipitor) 40 mg PO DAILY [facility] Last Admin: 02/05/18 08:35 Dose: 40 mg Carvedilol (Coreg) 6.25 mg PO BID [facility] Last Admin: 02/05/18 08:34 Dose: 6.25 mg Dextrose/Water (Dextrose 50%) 25 gm SLOW IVP PRN PRN PRN Reason: Hypoglycemia Diphenhydramine HCl (Benadryl) 25 mg PO Q6H PRN PRN Reason: Itching Fentanyl (Sublimaze) 50 mcg IV Q1H PRN PRN Reason: BREAKTHRU PAIN Ferrous Gluconate (Fergon) 324 mg PO BID [facility] Last Admin: 02/05/18 08:34 Dose: 324 mg Furosemide (Lasix) 40 mg PO DAILY [facility] Last Admin: 02/05/18 08:34 Dose: 40 mg Glucagon (Glucagon) 1 mg IM PRN PRN PRN Reason: Hypoglycemia Ropivacaine (Ropivacaine 0.2% 550 Ml) 550 mls @ 6 mls/hr NERVE BLCK INF [facility] Dextrose/Water (D5w) 1,000 mls @ 0 mls/hr IV .Q0M PRN; As Directed PRN Reason: Hypoglycemia Insulin Human Lispro (Humalog) 0 units SC .MILD SLIDING SCALE PRN PRN Reason: Mild Correctional Scale Insulin Human Lispro (Humalog) 0 units SC .BEDTIME SLIDING SC PRN PRN Reason: Bedtime Correctional Scale Iron/Minerals/Multivitamins (Theragran M) 1 tab PO DAILY [facility] Last Admin: 02/05/18 08:34 Dose: 1 tab Losartan Potassium (Cozaar) 25 mg PO DAILY [facility] Last Admin: 02/05/18 08:32 Dose: 25 mg Metformin HCl (Glucophage) 500 mg PO QAM-WM [facility] Last Admin: 02/05/18 08:34 Dose: 500 mg Multivitamins (Theragran) 1 tab PO DAILY [facility] Last Admin: 02/05/18 08:34 Dose: 1 tab Ondansetron HCl (Zofran) 4 mg IVP Q6H PRN PRN Reason: Nausea/Vomiting Promethazine HCl (Phenergan) 12.5 mg IM Q4H PRN PRN Reason: Nausea Senna/Docusate Sodium (Senokot S) 2 tab PO BID [facility] Last Admin: 02/05/18 08:33 Dose: 2 tab Sodium Chloride (Flush - Normal Saline) 10 ml IVF PRN PRN PRN Reason: Saline Flush Tamsulosin HCl (Flomax) 0.4 mg PO DAILY [facility] Last Admin: 02/05/18 08:35 Dose: 0.4 mg Tramadol HCl (Ultram) 50 mg PO Q6H PRN PRN Reason: Mild Pain (1-3) Last Admin: 02/04/18 21:21 Dose: 50 mg Tramadol HCl (Ultram) 100 mg PO Q6H PRN PRN Reason: Moderate Pain 4-6 Last Admin: 02/05/18 07:54 Dose: 100 mg Zolpidem Tartrate (Ambien) 5 mg PO HSPRN PRN PRN Reason: Insomnia Last Admin: 02/03/18 21:36 Dose: 5 mg
--- NOTE | 2018-02-05 12:26 | PRG ---
DATE OF SERVICE: 02/05/2018 SUBJECTIVE: Arun has been on the stroke unit overnight monitored and he has actually had an impro vement in his vision. He is now taking tramadol for pain and tolerating this relatively well. He is postop day #[address] Mccall has seen and evaluated the patient and concluded he had a sma ll occipital lobe ischemia. He has contraindication for MRI due to his implantable defibrillator. O verall, Arun feels better today. His pain is tolerating relatively well. He has been up back and forth to the bathroom and physical therapy has been reconsulted and is visiting with him currently. OBJECTIVE: VITAL SIGNS: He is more alert today. Grossly nonfocal. GENERAL: He is alert and oriented to person, place, time, and situation. MUSCULOSKELETAL: Incision is clean, no strike through, redressed. Neurovascularly intact in the inv olved extremities. IMPRESSION: 1. A 67-year-old white male postoperative day #3, left total knee arthroplasty, doing relatively wel l. 2. Cerebral (occipital lobe ischemia with hemianopsia). PLAN: 1. Continue current care. Physical therapy has been reconsulted. Give consideration to ophthalmolo gic evaluation for quantification of visual field deficits and improvement thereof. 2. We will recheck the patient tomorrow.
--- NOTE | 2018-02-05 16:18 | PDOC.PN ---
- Subjective Encounter Start Date: 02/05/18 Encounter Start Time: 11:00 Patient Seen today, with Family walking in the lobby with pt/OT, he is doing much better with some vision returning to normal. - Objective MAR Reviewed: Yes Vital Signs & Weight: Vital Signs (12 hours) Temp Pulse Pulse Pulse Resp BP BP 02/05/18 16:00 97.8 F 83 16 02/05/18 11:58 69 79 121/60 02/05/18 11:47 97.7 F 71 20 02/05/18 08:34 119/73 02/05/18 08:00 98.3 F 65 18 02/05/18 07:30 98.3 F 65 18 02/05/18 04:18 97.5 F L 63 20 BP BP Pulse Ox 02/05/18 16:00 145/65 H 95 02/05/18 11:58 111/57 L 02/05/18 11:47 120/56 L 95 02/05/18 08:34 02/05/18 08:00 02/05/18 07:30 154/73 H 95 02/05/18 04:18 121/67 93 L Weight Admit Weight 240 lb Weight 240 lb I&O: 02/04/18 02/05/18 02/06/18 06:59 06:59 06:59 Intake Total 600 480 Output Total 400 100 Balance 200 380 Result Diagrams: 02/05/18 04:45 02/03/18 05:22 Additional Labs: Accuchecks 02/05/18 02/04/18 06:00 21:15 POC Glucose 114 H 124 H Radiology Reviewed by me: Yes Phys Exam - Physical Examination HEENT: PERRLA, moist MMs Neck: no nodes, no JVD Respiratory: no wheezing, no rales Cardiovascular: RRR, no significant murmur Gastrointestinal: soft, non-tender Musculoskeletal: no edema, pulses present Dx/Plan (1) Status post total knee replacement, left Code(s): Z96.652 - PRESENCE OF LEFT ARTIFICIAL KNEE JOINT Status: Acute Comment: pain is well controlled, PT/OT, plan for ortho (2) BPH (benign prostatic hyperplasia) Code(s): N40.0 - BENIGN PROSTATIC HYPERPLASIA WITHOUT LOWER URINRY TRACT SYMP Status: Chronic Qualifiers: Lower urinary tract symptom presence: unspecified whether lower urinary tract symptoms present Qualified Code(s): N40.0 - Benign prostatic hyperplasia without lower urinary tract symptoms Comment: stbale, normal urination. (3) Cardiomyopathy Code(s): I42.9 - CARDIOMYOPATHY, UNSPECIFIED Status: Chronic Qualifiers: Cardiomyopathy type: ischemic Qualified Code(s): I25.5 - Ischemic cardiomyopathy Comment: Patient is on BB, rstarted on Eliquis (4) DM type 2 (diabetes mellitus, type 2) Status: Chronic Qualifiers: Diabetes mellitus mcfp insulin use: without mcfp use Diabetes mellitus complication status: with unspecified complications Qualified Code(s) : E11.8 - Type 2 diabetes mellitus with unspecified complications Comment: Stbale, Well controlled BG in range. (5) Dyslipidemia Code(s): E78.5 - HYPERLIPIDEMIA, UNSPECIFIED Status: Chronic Comment: stbale on Statins (6) HTN (hypertension) Code(s): I10 - ESSENTIAL (PRIMARY) HYPERTENSION Status: Chronic Qualifiers: Hypertension type: essential hypertension Qualified Code(s): I10 - Essential (primary) hypertension Comment: well controllled will continue to Monitor. (7) Occipital cerebral infarction Code(s): I63.9 - CEREBRAL INFARCTION, UNSPECIFIED Status: Acute Comment: MRI confirmed Stroke ischemic likely from thromboembolism from left ventricle clot, MRI confirmed, pt is on Eliquis, No TPA offered due to high risk of bleeding due to major knee surgery. - Plan cont current plan of care, PT/OT, high school social science teacher, speech therapy, incentive spirometry * . Review of Systems - Review of Systems Eyes: Vision Change. negative: Pain, Conjunctivae Inflammation, Eyelid Inflammation, Redness, Other ENT: negative: Ear Pain, Ear Discharge, Nose Pain, Nose Discharge, Nose Congestion, Mouth Pain, Mouth Swelling, Throat Pain, Throat Swelling, Other Respiratory: negative: Cough, Dry, Shortness of Breath, Hemoptysis, SOB with Excertion, Pleuritic Pain, Sputum, Wheezing Cardiovascular: negative: chest pain, palpitations, orthopnea, paroxysmal nocturnal dyspnea, edema, light headedness, other Gastrointestinal: negative: Nausea, Vomiting, Abdominal Pain, Diarrhea, Constipation, Melena, Hematochezia, Other Musculoskeletal: negative: Neck Pain, Shoulder Pain, Arm Pain, Back Pain, Hand Pain, Leg Pain, Foot Pain, Other Skin: negative: Rash, Lesions, Ehsan, Bruising, Other - Medications/Allergies Allergies/Adverse Reactions: Allergies Allergy/AdvReac Type Severity Reaction Status Date / Time No Known Allergies Allergy Verified 01/27/18 12:36 Medications: Current Medications Acetaminophen (Tylenol) 650 mg PO Q4H PRN PRN Reason: WYNNE/ T > 101F; Mild Pain (1-3) Hydrocodone Bitart/Acetaminophen ([place] 10/325) 1 tab PO Q4H PRN PRN Reason: Pain (1-3) Hydrocodone Bitart/Acetaminophen ([place] 10/325) 2 tab PO Q4H PRN PRN Reason: PAIN (4-6) Last Admin: 02/03/18 12:00 Dose: 2 tab Apixaban (Eliquis) 5 mg PO 1700 [facility] Last Admin: 02/04/18 17:32 Dose: 5 mg Aspirin (Ecotrin) 81 mg PO DAILY [facility] Last Admin: 02/05/18 08:34 Dose: 81 mg Atorvastatin Calcium (Lipitor) 40 mg PO DAILY [facility] Last Admin: 02/05/18 08:35 Dose: 40 mg Carvedilol (Coreg) 6.25 mg PO BID [facility] Last Admin: 02/05/18 08:34 Dose: 6.25 mg Dextrose/Water (Dextrose 50%) 25 gm SLOW IVP PRN PRN PRN Reason: Hypoglycemia Diphenhydramine HCl (Benadryl) 25 mg PO Q6H PRN PRN Reason: Itching Fentanyl (Sublimaze) 50 mcg IV Q1H PRN PRN Reason: BREAKTHRU PAIN Ferrous Gluconate (Fergon) 324 mg PO BID [facility] Last Admin: 02/05/18 08:34 Dose: 324 mg Furosemide (Lasix) 40 mg PO DAILY [facility] Last Admin: 02/05/18 08:34 Dose: 40 mg Glucagon (Glucagon) 1 mg IM PRN PRN PRN Reason: Hypoglycemia Ropivacaine (Ropivacaine 0.2% 550 Ml) 550 mls @ 6 mls/hr NERVE BLCK INF [facility] Dextrose/Water (D5w) 1,000 mls @ 0 mls/hr IV .Q0M PRN; As Directed PRN Reason: Hypoglycemia Insulin Human Lispro (Humalog) 0 units SC .MILD SLIDING SCALE PRN PRN Reason: Mild Correctional Scale Insulin Human Lispro (Humalog) 0 units SC .BEDTIME SLIDING SC PRN PRN Reason: Bedtime Correctional Scale Iron/Minerals/Multivitamins (Theragran M) 1 tab PO DAILY [facility] Last Admin: 02/05/18 08:34 Dose: 1 tab Losartan Potassium (Cozaar) 25 mg PO DAILY [facility] Last Admin: 02/05/18 08:32 Dose: 25 mg Metformin HCl (Glucophage) 500 mg PO QAM-WM [facility] Last Admin: 02/05/18 08:34 Dose: 500 mg Multivitamins (Theragran) 1 tab PO DAILY [facility] Last Admin: 02/05/18 08:34 Dose: 1 tab Ondansetron HCl (Zofran) 4 mg IVP Q6H PRN PRN Reason: Nausea/Vomiting Promethazine HCl (Phenergan) 12.5 mg IM Q4H PRN PRN Reason: Nausea Senna/Docusate Sodium (Senokot S) 2 tab PO BID [facility] Last Admin: 02/05/18 08:33 Dose: 2 tab Sodium Chloride (Flush - Normal Saline) 10 ml IVF PRN PRN PRN Reason: Saline Flush Tamsulosin HCl (Flomax) 0.4 mg PO DAILY [facility] Last Admin: 02/05/18 08:35 Dose: 0.4 mg Tramadol HCl (Ultram) 50 mg PO Q6H PRN PRN Reason: Mild Pain (1-3) Last Admin: 02/04/18 21:21 Dose: 50 mg Tramadol HCl (Ultram) 100 mg PO Q6H PRN PRN Reason: Moderate Pain 4-6 Last Admin: 02/05/18 13:26 Dose: 100 mg Zolpidem Tartrate (Ambien) 5 mg PO HSPRN PRN PRN Reason: Insomnia Last Admin: 02/03/18 21:36 Dose: 5 mg
[2018-02-05] MEDS: Apixaban 5 MG TAB PO SCH (16:50)
[2018-02-06 04:59] LABS: Hemoglobin 11.6 g/dL (14.0-18.0); Mean Platelet Volume 7.8 fL (7.4-10.4); Platelet Count 178 thou/uL (130-400); RBC Distribution Width 12.9 % (11.5-14.5); Red Blood Cell (RBC) Count 3.85 mill/uL (4.70-6.10); White Blood Cell (WBC) Count 7.6 thou/uL (4.8-10.8)
[2018-02-06] MEDS: Atorvastatin Calcium 40 MG TAB PO SCH (08:45)
[2018-02-06] MEDS: Multivitamin W/ Minerals 1 TAB PO SCH (08:45)
[2018-02-06] MEDS: Losartan 25 MG TAB PO SCH (08:46)
[2018-02-06] MEDS: metFORMIN 500 MG TAB PO SCH (08:46)
[2018-02-06] MEDS: Senokot S 8.6-50 MG TAB PO SCH (08:46)
[2018-02-06] MEDS: Tamsulosin HCl 0.4 MG CAP PO SCH (08:46)
[2018-02-06] MEDS: Furosemide 40 MG TAB PO SCH (08:46)
[2018-02-06] MEDS: Aspirin 81 mg Enteric Coated Tablet PO SCH (08:46)
[2018-02-06] MEDS: Ferrous Gluconate 324 MG TAB PO SCH (08:46)
[2018-02-06] MEDS: Carvedilol 6.25 MG TAB PO SCH (08:46)
[2018-02-06 11:43] VITALS: TEMP 98.6
[2018-02-06 12:18] VITALS: BP 148/67
[2018-02-06] MEDS: traMADol HCl 50 MG TAB PO PRN (12:42)
--- NOTE | 2018-02-06 15:44 | PDOC.PN ---
- Subjective Encounter Start Date: 02/06/18 Encounter Start Time: 07:00 Pt is sleepy and lethargic, No concern snoted. - Objective MAR Reviewed: Yes Vital Signs & Weight: Vital Signs (12 hours) Temp Pulse Pulse Pulse Resp BP BP 02/06/18 11:00 98.6 F 57 L 15 02/06/18 08:31 81 72 148/67 H 137/101 H 02/06/18 08:00 98.6 F 57 L 15 02/06/18 07:56 97.9 F 75 20 02/06/18 07:41 71 72 153/67 H 160/78 H 02/06/18 04:00 97.6 F 65 16 BP BP Pulse Ox 02/06/18 11:00 134/64 93 L 02/06/18 08:31 02/06/18 08:00 02/06/18 07:56 119/71 93 L 02/06/18 07:41 02/06/18 04:00 140/84 91 L Weight Admit Weight 240 lb Weight 240 lb I&O: 02/05/18 02/06/18 02/07/18 06:59 06:59 06:59 Intake Total 480 260 Output Total 100 Balance 380 260 Result Diagrams: 02/06/18 04:19 02/03/18 05:22 Additional Labs: Accuchecks 02/06/18 02/06/18 02/05/18 10:42 05:11 22:39 POC Glucose 122 H 117 H 123 H Radiology Reviewed by me: Yes Phys Exam - Physical Examination HEENT: PERRLA, moist MMs Neck: no nodes, no JVD Respiratory: no wheezing, no rales Cardiovascular: RRR, no significant murmur Gastrointestinal: soft, non-tender Musculoskeletal: no edema, pulses present Neurological: non-focal, normal sensation Dx/Plan (1) Status post total knee replacement, left Code(s): Z96.652 - PRESENCE OF LEFT ARTIFICIAL KNEE JOINT Status: Acute Comment: pain is well controlled, PT/OT, plan for ortho (2) BPH (benign prostatic hyperplasia) Code(s): N40.0 - BENIGN PROSTATIC HYPERPLASIA WITHOUT LOWER URINRY TRACT SYMP Status: Chronic Qualifiers: Lower urinary tract symptom presence: unspecified whether lower urinary tract symptoms present Qualified Code(s): N40.0 - Benign prostatic hyperplasia without lower urinary tract symptoms Comment: stbale, normal urination. (3) Cardiomyopathy Code(s): I42.9 - CARDIOMYOPATHY, UNSPECIFIED Status: Chronic Qualifiers: Cardiomyopathy type: ischemic Qualified Code(s): I25.5 - Ischemic cardiomyopathy Comment: Patient is on BB, rstarted on Eliquis (4) DM type 2 (diabetes mellitus, type 2) Status: Chronic Qualifiers: Diabetes mellitus buttermaker helper insulin use: without buttermaker helper use Diabetes mellitus complication status: with unspecified complications Qualified Code(s) : E11.8 - Type 2 diabetes mellitus with unspecified complications Comment: Stbale, Well controlled BG in range. (5) Dyslipidemia Code(s): E78.5 - HYPERLIPIDEMIA, UNSPECIFIED Status: Chronic Comment: stbale on Statins (6) HTN (hypertension) Code(s): I10 - ESSENTIAL (PRIMARY) HYPERTENSION Status: Chronic Qualifiers: Hypertension type: essential hypertension Qualified Code(s): I10 - Essential (primary) hypertension Comment: well controllled will continue to Monitor. (7) Occipital cerebral infarction Code(s): I63.9 - CEREBRAL INFARCTION, UNSPECIFIED Status: Acute Comment: Improved vision noted. pt Will be dischagred Home today. Will sign off.. - Plan * . - Discharge Day Encounter end time: 07:35 Review of Systems - Review of Systems Eyes: negative: Pain, Vision Change, Conjunctivae Inflammation, Eyelid Inflammation, Redness, Other ENT: negative: Ear Pain, Ear Discharge, Nose Pain, Nose Discharge, Nose Congestion, Mouth Pain, Mouth Swelling, Throat Pain, Throat Swelling, Other Respiratory: negative: Cough, Dry, Shortness of Breath, Hemoptysis, SOB with Excertion, Pleuritic Pain, Sputum, Wheezing Cardiovascular: negative: chest pain, palpitations, orthopnea, paroxysmal nocturnal dyspnea, edema, light headedness, other Musculoskeletal: negative: Neck Pain, Shoulder Pain, Arm Pain, Back Pain, Hand Pain, Leg Pain, Foot Pain, Other - Medications/Allergies Allergies/Adverse Reactions: Allergies Allergy/AdvReac Type Severity Reaction Status Date / Time No Known Allergies Allergy Verified 01/27/18 12:36
--- NOTE | 2018-02-09 09:39 | DIS ---
DATE OF ADMISSION: 02/02/2018 DATE OF DISCHARGE: 02/06/2018 DISCHARGE DISPOSITION: To home. ADMISSION DIAGNOSIS: End-stage tricompartmental osteoarthritis, left knee. 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 CONSULTANTS: [facility] for acute postop pain management. [facility] for medical management and Dr. Janelle Mccall for Neurology. BRIEF CLINICAL HISTORY: Arun is a 67-year-old white male who was admitted to [facility] and underwent the above elective procedure on date of admission. On postop day 2, he n oticed some visual disturbances to include poor peripheral vision and therefore Dr. Mccall was consulte d from Neurology for bitemporal hemianopsia. Clinical examination was very suspicious for occipital acute stroke. The patient has known peripheral vascular disease as well as an apical cardiac apical thrombus. He was transferred to the stroke unit on postop day #2. No significant changes were made medically. There is no intervention performed other than a CT angiogram of the neck. He cannot unde rgo MRI due to pacemaker. He convalesced for the next day or so on the stroke unit. There were no s ignificant changes other than significant improvement in his vision and his clinical exam of gross vi sual cristobal improved dramatically as well as his level of somnolence. At the time of discharge, the patient was afebrile. He is ambulatory without assistance, tolerating a diet, and voiding without di fficulty. He was doing exceptionally well and suffered no residual effects. He was placed back on h is Eliquis daily and again had no residual deficits. Please see medication reconciliation form. We will be happy to see the patient on an as needed basis between now and his next appointment. CONDITION ON DISCHARGE: Stable. PROGNOSIS: Good.
== END 2018-02-06 12:45 | disposition home or self-care (01) | DRG 469 ==
LOC: SURG A 02-02 05:39 → SJJU 02-02 10:14 → 2SE 02-04 20:17
PROVIDERS: ADMIT Orthopaedic Surgery; ATTEND Orthopaedic Surgery
PROC: 0SRD0J9 Replacement of Left Knee Joint with Synthetic Substitute, Cemented, Open Approach (ICD-10-PCS; principal; 2018-02-02)
DX: M17.12 Unilateral primary osteoarthritis, left knee (principal); I63.9 Cerebral infarction, unspecified; I67.82 Cerebral ischemia; I42.9 Cardiomyopathy, unspecified; Z95.810 Presence of automatic (implantable) cardiac defibrillator; Z79.01 Long term (current) use of anticoagulants; I51.3 Intracardiac thrombosis, not elsewhere classified; Z95.1 Presence of aortocoronary bypass graft; I10 Essential (primary) hypertension; Z95.0 Presence of cardiac pacemaker; Z87.891 Personal history of nicotine dependence; N40.0 Benign prostatic hyperplasia without lower urinary tract symptoms; H54.62 Unqualified visual loss, left eye, normal vision right eye; I25.5 Ischemic cardiomyopathy; E78.5 Hyperlipidemia, unspecified; E11.9 Type 2 diabetes mellitus without complications; Z79.84 Long term (current) use of oral hypoglycemic drugs
CPT/HCPCS: 36415; 36416; 70498; 80048; 85027; 85610; 85730; A4306; C1713; C1776; G8978-GP-CJ; G8978-GP-CK; G8979-GP-CI; G8987-GO-CJ; G8988-GO-CI; G9159-GN-CH; G9160-GN-CH; J1100; J1885; J2250; J2270; J2405; J2704; J2795; J3370; J3490; J7050

== ENCOUNTER 2018-11-26 06:29 | Day surgery (SDC) | payer OTHER ==
[2018-11-25 11:21] VITALS: BMI 31.8
[2018-11-26] MEDS ORDERED: CEFAZOLIN 2 GM/50 ML BAG ONE (07:14)
[2018-11-26 07:18] LABS: #Basophils 0.1 thou/uL (0.0-0.2); #Eosinphils 0.2 thou/uL (0.0-0.7); #Monocytes 0.5 thou/uL (0.11-0.59); #Neutrophils 4.6 thou/uL (1.40-6.50); %Basophils 1.4 % (0.0-1.0); %Eosinophils 2.4 % (0.0-10.0); %Lymphocytes 16.3 % (21.0-51.0); %Monocytes 7.1 % (0.0-10.0); %Neutrophils 72.8 % (42.0-75.0); Hemoglobin 15.3 g/dL (14.0-18.0); Mean Corpuscular HGB CONC 32.9 g/dL (32.0-36.0); Mean Corpuscular Hemoglobin 30.9 pg (27.0-31.0); Mean Corpuscular Volume 93.9 fL (78.0-98.0); Mean Platelet Volume 8.1 fL (7.4-10.4); Platelet Count 176 thou/uL (130-400); RBC Distribution Width 13.1 % (11.5-14.5); Red Blood Cell (RBC) Count 4.95 mill/uL (4.70-6.10); White Blood Cell (WBC) Count 6.4 thou/uL (4.8-10.8)
[2018-11-26 07:38] LABS: Anion Gap 14 mmol/L (10-20); BUN (Urea Nitrogen) 29 mg/dL (8.4-25.7); Calc. Creatinine Clearance 76 mL/min (70-130); Calcium 9.4 mg/dL (7.8-10.44); Carbon Dioxide 22 mmol/L (23-31); Chloride 107 mmol/L (98-107); Estimated GFR-MDRD 51; Glucose 127 mg/dL (80-115); Potassium 4.3 mmol/L (3.5-5.1); Sodium 139 mmol/L (136-145)
[2018-11-26 07:54] LABS: INR-International Normal Ratio 1.1
[2018-11-26 08:00] LABS: PTT 29.7 SEC (22.9-36.1)
[2018-11-26] MEDS ORDERED: Fentanyl 100 MCG/2 ML VIAL ONE (08:20)
[2018-11-26] MEDS ORDERED: Midazolam HCl 2 mg/2 ml Vial ONE ×2 (08:20→08:47)
[2018-11-26] MEDS ORDERED: diphenhydrAMINE 50 MG/ML VIAL ONE (08:47)
--- NOTE | 2018-11-26 09:55 | RAD ---
SINGLE VIEW OF THE CHEST: Comparison: 12-08-13 History: Cardiac device placement/exchange. FINDINGS: Single view of the chest shows an enlarged but stable cardiomediastinal silhouette. The patient is st atus post sternotomy. The pacemaker leads are unchanged in position. The pacemaker generator appears to have been exchanged. No pneumothorax is seen. IMPRESSION: Status post generator change without evidence of pneumothorax. POS: [facility]PC
--- NOTE | 2018-11-26 17:07 | EKG ---
Test Reason : PREOP Blood Pressure : / mmHG Vent. Rate : 070 BPM Atrial Rate : 070 BPM P-R Int : 000 ms QRS Dur : 180 ms QT Int : 472 ms P-R-T Axes : 000 -67 109 degrees QTc Int : 509 ms AV sequential or dual chamber electronic pacemaker When compared with ECG of 27-JAN-2018 12:12, No significant change was found Confirmed by DR. Suzie SANTANA ([id number]) on 11/26/2018 5:06:43 PM Referred By: [facility] Confirmed By:DR. Suzie SANTANA
== END 2018-11-26 10:25 | disposition home or self-care (01) ==
LOC: CCL 06:29
PROVIDERS: ATTEND Internal Medicine Cardiovascular Disease
PROC: 0JH609Z Insertion of Cardiac Resynchronization Defibrillator Pulse Generator into Chest Subcutaneous Tissue and Fascia, Open Approach (ICD-10-PCS; principal; 2018-11-26)
PROC: 0JPT0PZ Removal of Cardiac Rhythm Related Device from Trunk Subcutaneous Tissue and Fascia, Open Approach (ICD-10-PCS; principal; 2018-11-26)
DX: I50.22 Chronic systolic (congestive) heart failure (principal); I25.5 Ischemic cardiomyopathy; I48.0 Paroxysmal atrial fibrillation; I44.7 Left bundle-branch block, unspecified; M19.90 Unspecified osteoarthritis, unspecified site; I69.398 Other sequelae of cerebral infarction; H54.7 Unspecified visual loss; Z79.01 Long term (current) use of anticoagulants; Z79.82 Long term (current) use of aspirin; Z79.84 Long term (current) use of oral hypoglycemic drugs; Z79.899 Other long term (current) drug therapy
CPT/HCPCS: 33264; 36415; 71045; 80048; 85025; 85610; 85730; 93005; 93010; 93641; 99152; 99153; C1882; J1200; J2250; J3010; J3490

== ENCOUNTER 2022-06-24 09:44 | Outpatient (CLI) | payer BC, OTHER ==
[2022-06-24 10:28] LABS: Bilirubin Neg (Negative); Blood, Urine 50 (Negative); Clarity Cloudy (Clear); Glucose, Urine (Dipstick) Normal (Negative); Ketone, Urine Negative (Negative); Leukocyte 500 (Negative); Nitrite Negative (Negative); Protein, Urine (Dipstick) 30 mg/dl (Neg-Trace); Urobilinogen Normal mg/dL (Less than 2)
[2022-06-24 10:32] LABS: Hemoglobin 12.5 g/dL (13.5-17.5); Mean Corpuscular HGB CONC 32.1 g/dL (32.0-36.0); Mean Corpuscular Hemoglobin 29.6 pg (27.0-33.0); Mean Corpuscular Volume 92.4 fl (81.2-95.1); Mean Platelet Volume 10.5 fl (7.4-10.4); Platelet Count 204 10x3/uL (150-450); RBC Distribution Width 15.8 % (11.5-14.5); Red Blood Cell (RBC) Count 4.22 10x6/uL (4.32-5.72); White Blood Cell (WBC) Count 5.4 10x3/uL (3.5-10.5)
[2022-06-24 10:48] LABS: RBC/HPF 0-3 HPF (0-3); WBC/HPF Greater Than 50 HPF (0-3)
[2022-06-24 10:49] LABS: Bacteria/HPF 3+ HPF (None Seen); Squamous Epithelial 0-3 HPF (0-3)
[2022-06-24 10:56] LABS: INR-International Normal Ratio 1.1; PTT 27.7 sec (22.0-33.0); Prothrombin Time 11.6 sec (9.5-12.1)
[2022-06-24 11:01] LABS: Anion Gap 13 mmol/L (10-20); BUN (Urea Nitrogen) 26 mg/dL (8.4-25.7); Calc. Creatinine Clearance 0 mL/min (70-130); Calcium 9.6 mg/dL (7.8-10.44); Carbon Dioxide 27 mmol/L (23-31); Chloride 104 mmol/L (98-107); Estimated GFR 52; Glucose 93 mg/dL (83-110); Potassium 4.6 mmol/L (3.5-5.1); Sodium 139 mmol/L (136-145)
== END 2022-06-24 09:45 | disposition home or self-care (01) ==
LOC: LABBT 09:44
PROVIDERS: ATTEND Urology
DX: Z01.812 Encounter for preprocedural laboratory examination (principal); N40.1 Benign prostatic hyperplasia with lower urinary tract symptoms; I25.10 Atherosclerotic heart disease of native coronary artery without angina pectoris; I48.91 Unspecified atrial fibrillation; R97.20 Elevated prostate specific antigen [PSA]; M17.12 Unilateral primary osteoarthritis, left knee; R33.8 Other retention of urine; N99.89 Other postprocedural complications and disorders of genitourinary system; Z20.822 Contact with and (suspected) exposure to COVID-19
CPT/HCPCS: 80048; 81001; 85027; 85610; 85730; 87077; 87086; 87186; 87811

== ENCOUNTER 2022-06-27 09:28 | Inpatient (IN) | payer BC, OTHER ==
[2022-06-25 13:26] VITALS: BMI 33.0
[2022-06-27] MEDS ORDERED: fentaNYL Citrate/PF 100 MCG/2 ML SYRINGE ONE (14:26)
[2022-06-27] MEDS ORDERED: Levofloxacin 500 mg/D5W 100 ml Premix Bag ONE (14:42)
[2022-06-27] MEDS ORDERED: Lidocaine 1% PF 5 ML VIAL ONE (14:45)
[2022-06-27] MEDS ORDERED: Ondansetron PF 4 MG/2 ML Vial ONE (14:45)
[2022-06-27] MEDS ORDERED: B & O ONE (15:15)
[2022-06-27] MEDS ORDERED: hydrALAZINE 20 MG/ML VIAL SLOW IVP PRN (16:08)
[2022-06-27] MEDS ORDERED: Acetaminophen 500 MG TAB PO PRN (16:08)
[2022-06-27] MEDS ORDERED: Hyoscyamine Sulfate SL 0.125 mg Tablet SL PRN (16:08)
[2022-06-27] MEDS ORDERED: Phenazopyridine HCl 97.5 MG TABLET PO PRN (16:08)
[2022-06-27] MEDS ORDERED: Morphine 2 MG/ML VIAL SLOW IVP PRN (16:08)
[2022-06-27] MEDS ORDERED: Mag-Al 1200 mg/1200 mg/30 ML UDCUP PO PRN (16:08)
[2022-06-27] MEDS ORDERED: diphenhydrAMINE 25 MG CAP PO PRN (16:08)
[2022-06-27] MEDS ORDERED: Promethazine HCl 25 MG in Sodium Chloride 0.9% 50 ML IVPB PRN (16:10)
[2022-06-27] MEDS ORDERED: Furosemide 40 MG TAB PO PRN (16:12)
[2022-06-27] MEDS ORDERED: Morphine Sulfate 2 MG/ML SYRINGE SLOW IVP PRN (16:20)
[2022-06-27] MEDS ORDERED: HYDROmorphone 2 MG/ML VIAL SLOW IVP PRN (16:20)
[2022-06-27] MEDS ORDERED: Promethazine HCl 25 MG/ML VIAL IVPB PRN (16:20)
[2022-06-27] MEDS ORDERED: Fentanyl 100 MCG/2 ML VIAL ONE ×2 (16:20→16:48)
[2022-06-27] MEDS ORDERED: Ondansetron HCl/PF 4 MG/2 ML Vial IVP PRN (16:20)
[2022-06-27] MEDS ORDERED: Promethazine HCl 25 MG/ML VIAL IM PRN (16:20)
[2022-06-27] MEDS: metFORMIN 500 MG TAB PO SCH (18:19)
[2022-06-27] MEDS: Atorvastatin Calcium 40 MG TAB PO SCH (21:18)
[2022-06-27] MEDS: Carvedilol 6.25 MG TAB PO SCH (21:18)
[2022-06-27] MEDS: Sotalol HCl 80 MG TAB PO SCH (21:19)
[2022-06-27] MEDS: traMADol HCl 50 MG TAB PO PRN (23:15)
[2022-06-28] MEDS: Ciprofloxacin 500 MG TAB PO SCH ×2 (05:46→20:35)
[2022-06-28 06:50] LABS: #Eosinphils 0.1 thou/uL (0.0-0.7); #Lymphocytes 0.8 thou/uL (1.20-3.40); #Monocytes 0.7 thou/uL (0.11-0.59); #Neutrophils 6.9 thou/uL (1.40-6.50); %Basophils 0.5 % (0.0-1.0); %Eosinophils 0.9 % (0.0-10.0); %Lymphocytes 9.6 % (21.0-51.0); Hemoglobin 11.8 g/dL (14.0-18.0); Mean Corpuscular HGB CONC 32.1 g/dL (32.0-36.0); Mean Corpuscular Hemoglobin 30.7 pg (27.0-31.0); Mean Corpuscular Volume 95.5 fL (78.0-98.0); Mean Platelet Volume 8.8 fL (7.4-10.4); Platelet Count 179 thou/uL (130-400); RBC Distribution Width 14.9 % (11.5-14.5); Red Blood Cell (RBC) Count 3.84 mill/uL (4.70-6.10); White Blood Cell (WBC) Count 8.5 thou/uL (4.8-10.8)
[2022-06-28] MEDS: Spironolactone 25 MG TAB PO SCH ×2 (08:06→08:07)
[2022-06-28] MEDS: Carvedilol 6.25 MG TAB PO SCH ×2 (08:07→20:35)
[2022-06-28] MEDS: Enoxaparin Sodium 120 MG/0.8 ML SYRINGE SC SCH ×2 (08:07→20:37)
[2022-06-28] MEDS: metFORMIN 500 MG TAB PO SCH ×2 (08:07→17:40)
[2022-06-28] MEDS: Losartan 25 MG TAB PO SCH (08:07)
[2022-06-28] MEDS: Multivit, Therapeutic 1 TAB PO SCH (08:07)
[2022-06-28] MEDS: Hydrochlorothiazide 25 MG TAB PO SCH (08:07)
[2022-06-28] MEDS: Sotalol HCl 80 MG TAB PO SCH ×2 (08:08→20:36)
[2022-06-28] MEDS: Atorvastatin Calcium 40 MG TAB PO SCH (20:35)
[2022-06-28] MEDS: traMADol HCl 50 MG TAB PO PRN (20:36)
[2022-06-29] MEDS ORDERED: B & O PR SCH (02:30)
[2022-06-29] MEDS: Ciprofloxacin 500 MG TAB PO SCH ×2 (06:08→20:47)
[2022-06-29] MEDS: Losartan 25 MG TAB PO SCH (08:25)
[2022-06-29] MEDS: Enoxaparin Sodium 120 MG/0.8 ML SYRINGE SC SCH ×2 (08:25→20:47)
[2022-06-29] MEDS: Spironolactone 25 MG TAB PO SCH (08:25)
[2022-06-29] MEDS: Carvedilol 6.25 MG TAB PO SCH ×2 (08:25→20:46)
[2022-06-29] MEDS: Multivit, Therapeutic 1 TAB PO SCH (08:25)
[2022-06-29] MEDS: Hydrochlorothiazide 25 MG TAB PO SCH (08:25)
[2022-06-29] MEDS: metFORMIN 500 MG TAB PO SCH ×2 (08:25→16:01)
[2022-06-29] MEDS: Sotalol HCl 80 MG TAB PO SCH ×2 (08:26→20:47)
[2022-06-29] MEDS: Atorvastatin Calcium 40 MG TAB PO SCH (20:47)
[2022-06-30] MEDS: Ciprofloxacin 500 MG TAB PO SCH ×2 (05:39→21:13)
[2022-06-30] MEDS: traMADol HCl 50 MG TAB PO PRN ×2 (09:24→16:24)
[2022-06-30] MEDS: Multivit, Therapeutic 1 TAB PO SCH (09:24)
[2022-06-30] MEDS: Spironolactone 25 MG TAB PO SCH (09:24)
[2022-06-30] MEDS: Losartan 25 MG TAB PO SCH (09:25)
[2022-06-30] MEDS: Hydrochlorothiazide 25 MG TAB PO SCH (09:25)
[2022-06-30] MEDS: metFORMIN 500 MG TAB PO SCH ×2 (09:25→16:24)
[2022-06-30] MEDS: Sotalol HCl 80 MG TAB PO SCH ×2 (09:26→21:24)
[2022-06-30] MEDS: Carvedilol 6.25 MG TAB PO SCH ×2 (09:26→21:14)
[2022-06-30] MEDS: Enoxaparin Sodium 120 MG/0.8 ML SYRINGE SC SCH (09:26)
[2022-06-30] MEDS: Atorvastatin Calcium 40 MG TAB PO SCH (21:14)
[2022-06-30] MEDS: Enoxaparin Sodium 60 MG/0.6 ML SYRINGE SC SCH (21:14)
[2022-07-01] MEDS: Ciprofloxacin 500 MG TAB PO SCH ×2 (05:00→20:59)
[2022-07-01] MEDS: Sotalol HCl 80 MG TAB PO SCH ×2 (09:39→21:00)
[2022-07-01] MEDS: Hydrochlorothiazide 25 MG TAB PO SCH (09:39)
[2022-07-01] MEDS: Enoxaparin Sodium 60 MG/0.6 ML SYRINGE SC SCH ×2 (09:40→21:00)
[2022-07-01] MEDS: Carvedilol 6.25 MG TAB PO SCH ×2 (09:40→20:59)
[2022-07-01] MEDS: metFORMIN 500 MG TAB PO SCH ×2 (09:40→16:38)
[2022-07-01] MEDS: Spironolactone 25 MG TAB PO SCH (09:40)
[2022-07-01] MEDS: Multivit, Therapeutic 1 TAB PO SCH (09:40)
[2022-07-01] MEDS: Losartan 25 MG TAB PO SCH (09:40)
[2022-07-01] MEDS: Oxybutynin 5 MG TAB PO PRN (09:44)
[2022-07-01] MEDS ORDERED: Polyethylene Glycol 3350 17 GM Packet PO PRN (09:58)
[2022-07-01] MEDS: traMADol HCl 50 MG TAB PO PRN (16:39)
[2022-07-01] MEDS: Atorvastatin Calcium 40 MG TAB PO SCH (20:59)
[2022-07-02] MEDS: Ciprofloxacin 500 MG TAB PO SCH (04:54)
[2022-07-02] MEDS: Sotalol HCl 80 MG TAB PO SCH (09:26)
[2022-07-02] MEDS: Losartan 25 MG TAB PO SCH (09:27)
[2022-07-02] MEDS: Spironolactone 25 MG TAB PO SCH (09:28)
[2022-07-02] MEDS: Oxybutynin 5 MG TAB PO PRN (09:28)
[2022-07-02] MEDS: Carvedilol 6.25 MG TAB PO SCH (09:28)
[2022-07-02] MEDS: Multivit, Therapeutic 1 TAB PO SCH (09:28)
[2022-07-02] MEDS: Hydrochlorothiazide 25 MG TAB PO SCH (09:28)
[2022-07-02] MEDS: Enoxaparin Sodium 60 MG/0.6 ML SYRINGE SC SCH (09:29)
[2022-07-02] MEDS: metFORMIN 500 MG TAB PO SCH (09:29)
[2022-07-02] MEDS: traMADol HCl 50 MG TAB PO PRN (14:26)
[2022-07-02 18:14] VITALS: BP 106/67; TEMP 97.6
[2022-07-02] MEDS ORDERED: Apixaban 5 MG TAB PO SCH (21:00)
== END 2022-07-02 14:51 | disposition home or self-care (01) | DRG 713 ==
LOC: SDC 09:28 → T4-A 16:08 → OBSVTOIN 06-29 18:20
PROVIDERS: ADMIT Urology; ATTEND Urology
PROC: 0VT08ZZ Resection of Prostate, Via Natural or Artificial Opening Endoscopic (ICD-10-PCS; principal; 2022-06-29)
DX: N40.1 Benign prostatic hyperplasia with lower urinary tract symptoms (principal); N13.8 Other obstructive and reflux uropathy; R33.8 Other retention of urine; I73.9 Peripheral vascular disease, unspecified; Z20.822 Contact with and (suspected) exposure to COVID-19
CPT/HCPCS: 36415; 85025; 88305; J1650; J1956; J2270; J2405; J3010

== ENCOUNTER 2022-09-30 09:31 | Outpatient (CLI) | payer BC, OTHER ==
[2022-09-30 10:42] LABS: Hemoglobin 14.1 g/dL (13.5-17.5); Mean Corpuscular HGB CONC 32.8 g/dL (32.0-36.0); Mean Corpuscular Hemoglobin 30.2 pg (27.0-33.0); Mean Corpuscular Volume 92.1 fl (81.2-95.1); Mean Platelet Volume 10.9 fl (7.4-10.4); Platelet Count 195 10x3/uL (150-450); RBC Distribution Width 14.7 % (11.5-14.5); Red Blood Cell (RBC) Count 4.67 10x6/uL (4.32-5.72); White Blood Cell (WBC) Count 9.1 10x3/uL (3.5-10.5)
[2022-09-30 11:09] LABS: INR-International Normal Ratio 1.1; PTT 28.2 sec (22.0-33.0); Prothrombin Time 11.7 sec (9.5-12.1)
[2022-09-30 11:15] LABS: ALT (SGPT) 35 U/L (8-55); AST (SGOT) 13 U/L (5-34); Alkaline Phosphatase 59 U/L (40-110); Anion Gap 12 mmol/L (10-20); BUN (Urea Nitrogen) 32 mg/dL (8.4-25.7); Bilirubin, Direct 0.3 mg/dL (0.1-0.3); Bilirubin, Total 0.8 mg/dL (0.2-1.2); Calc. Creatinine Clearance 0 mL/min (70-130); Calcium 9.4 mg/dL (7.8-10.44); Carbon Dioxide 25 mmol/L (23-31); Chloride 107 mmol/L (98-107); Estimated GFR 42; Glucose 116 mg/dL (83-110); Potassium 4.3 mmol/L (3.5-5.1); Protein, Total 6.6 g/dL (5.8-8.1); Sodium 140 mmol/L (136-145)
== END 2022-09-30 09:32 | disposition home or self-care (01) ==
LOC: LABBT 09:31
PROVIDERS: ATTEND Internal Medicine Cardiovascular Disease
DX: Z01.812 Encounter for preprocedural laboratory examination (principal)
CPT/HCPCS: 80048; 80076; 85027; 85610; 85730

== ENCOUNTER 2022-10-01 06:14 | Day surgery (SDC) | payer BC, OTHER ==
[2022-09-30 13:08] VITALS: BMI 29.2
== END 2022-10-01 08:57 | disposition home or self-care (01) ==
LOC: SDC 06:14
PROVIDERS: ATTEND Internal Medicine Cardiovascular Disease
DX: I48.19 Other persistent atrial fibrillation (principal); I49.3 Ventricular premature depolarization; I50.9 Heart failure, unspecified; I25.5 Ischemic cardiomyopathy; I44.7 Left bundle-branch block, unspecified; M19.90 Unspecified osteoarthritis, unspecified site; I25.10 Atherosclerotic heart disease of native coronary artery without angina pectoris; I47.20 Ventricular tachycardia, unspecified; Z53.8 Procedure and treatment not carried out for other reasons; Z86.010 Personal history of colon polyps; Z79.01 Long term (current) use of anticoagulants; Z79.82 Long term (current) use of aspirin; Z79.84 Long term (current) use of oral hypoglycemic drugs; Z79.899 Other long term (current) drug therapy; Z95.810 Presence of automatic (implantable) cardiac defibrillator
CPT/HCPCS: 93005; 93010

== ENCOUNTER 2023-04-24 17:27 | Inpatient (IN) | payer BC, MEDICARE ==
[2023-04-24 18:13] LABS: Bacteria/HPF 1+ HPF (None Seen); Bilirubin Negative (Negative); Blood, Urine Trace (Negative); CAUTI Indications for Culture Alt mental st,lethar; Clarity Turbid (Clear); Glucose, Urine (Dipstick) Normal (Negative); Ketone, Urine Negative (Negative); Leukocyte 500 Leu/uL (Negative); Nitrite Negative (Negative); Protein, Urine (Dipstick) 30 mg/dL (Neg-Trace); Specific Gravity, Urine 1.019 (1.002-1.036); Squamous Epithelial 0-3 HPF (0-3); Urobilinogen Normal mg/dL (Less than 2); WBC/HPF Greater than 50 HPF (0-3); pH, Urine 5.5 (5.0-9.0)
[2023-04-24 18:14] LABS: Urine Culture Reflex Yes Yes
[2023-04-24 18:17] LABS: Amphetamine Not Detected (NotDetected); Barbiturates Screen Not Detected (NotDetected); Benzodiazepine Screen Not Detected (NotDetected); Cocaine Metabolite Screen Not Detected (NotDetected); Methadone Not Detected (NotDetected); Methamphetamine Not Detected (NotDetected); Opiate Screen Detected (NotDetected); Oxycodone Screen Not Detected (NotDetected); Phencyclidine (PCP) Not Detected (NotDetected); THC/Cannabinoid Screen Not Detected (NotDetected); Tricyclic Screen Not Detected (NotDetected)
[2023-04-24 18:19] LABS: #Eosinphils 0.1 thou/uL (0.0-0.7); #Monocytes 1.3 thou/uL (0.11-0.59); #Neutrophils 9.6 thou/uL (1.40-6.50); %Basophils 0.2 % (0.0-1.0); %Eosinophils 0.7 % (0.0-10.0); %Lymphocytes 12.1 % (21.0-51.0); %Neutrophils 76.4 % (42.0-75.0); Hemoglobin 15.9 g/dL (14.0-18.0); Mean Corpuscular HGB CONC 33.8 g/dL (32.0-36.0); Mean Corpuscular Hemoglobin 31.5 pg (27.0-31.0); Mean Corpuscular Volume 93.5 fl (78.0-98.0); Mean Platelet Volume 10.6 fL (7.4-10.4); Platelet Count 243 10x3/uL (130-400); RBC Distribution Width 12.9 % (11.5-14.5); Red Blood Cell (RBC) Count 5.04 mill/uL (4.70-6.10); White Blood Cell (WBC) Count 12.5 10x3/uL (4.8-10.8)
[2023-04-24] MEDS ORDERED: Morphine 4 MG/ML VIAL ONE (18:32)
[2023-04-24 18:54] LABS: ALT (SGPT) 15 U/L (8-55); AST (SGOT) 10 U/L (5-34); Alkaline Phosphatase 63 U/L (40-110); Anion Gap 16 mmol/L (10-20); BUN (Urea Nitrogen) 40 mg/dL (8.4-25.7); Bilirubin, Total 0.8 mg/dL (0.2-1.2); Calc. Creatinine Clearance 0 mL/min (70-130); Calcium 9.8 mg/dL (7.8-10.44); Carbon Dioxide 25 mmol/L (23-31); Chloride 98 mmol/L (98-107); Estimated GFR 37; Globulin 3.1 g/dL (2.4-3.5); Glucose 147 mg/dL (83-110); Potassium 3.8 mmol/L (3.5-5.1); Protein, Total 7.1 g/dL (5.8-8.1); Sodium 135 mmol/L (136-145)
[2023-04-24 18:55] LABS: Acetaminophen Less than 10 mcg/mL (10.0-30.0); Alcohol Less than 10.0 mg/dL (Less than 10); Salicylate Less than 8.0 mg/dL (15.0-30.0)
[2023-04-24] MEDS ORDERED: cefTRIAXone (ROCEPHIN) 1 GM VIAL ONE (20:32)
[2023-04-24] MEDS ORDERED: Lidocaine 1% PF 5 ML VIAL ONE (20:34)
[2023-04-24] MEDS ORDERED: Calcium Carbonate 500 MG ChewTAB PO PRN (22:22)
[2023-04-24] MEDS ORDERED: Ondansetron ODT 4 MG TAB PO PRN (22:22)
[2023-04-24] MEDS ORDERED: Acetaminophen 325 MG TAB PO PRN (22:22)
[2023-04-24] MEDS ORDERED: Ketorolac Tromethamine 30 MG/ML VIAL ONE (22:49)
[2023-04-24] MEDS ORDERED: Diazepam 10 MG/2 ML SYRINGE ONE (22:49)
[2023-04-24] MEDS ORDERED: HumaLOG 300 UNITS/3 ML VIAL SC PRN ×2 (23:21)
[2023-04-24] MEDS ORDERED: Dextrose 5% in Water 1,000 ML IV PRN (23:21)
[2023-04-24] MEDS ORDERED: Dextrose 50% Abboject 50 ML SYRINGE SLOW IVP PRN (23:21)
[2023-04-24] MEDS ORDERED: Glucagon 1 MG/ML KIT IM PRN (23:21)
[2023-04-24] MEDS ORDERED: Gabapentin 300 MG CAP PO SCH (23:55)
[2023-04-25 00:09] VITALS: BMI 28.6
[2023-04-25 06:43] LABS: #Eosinphils 0.1 thou/uL (0.0-0.7); #Monocytes 0.7 thou/uL (0.11-0.59); #Neutrophils 5.2 thou/uL (1.40-6.50); %Basophils 0.4 % (0.0-1.0); %Eosinophils 1.1 % (0.0-10.0); %Lymphocytes 17.1 % (21.0-51.0); %Neutrophils 70.9 % (42.0-75.0); Mean Corpuscular HGB CONC 33.1 g/dL (32.0-36.0); Mean Corpuscular Volume 93.8 fl (78.0-98.0); Mean Platelet Volume 10.7 fL (7.4-10.4); Platelet Count 165 10x3/uL (130-400); RBC Distribution Width 12.9 % (11.5-14.5); Red Blood Cell (RBC) Count 4.51 mill/uL (4.70-6.10); White Blood Cell (WBC) Count 7.3 10x3/uL (4.8-10.8)
[2023-04-25 07:08] LABS: Anion Gap 12 mmol/L (10-20); BUN (Urea Nitrogen) 42 mg/dL (8.4-25.7); Calc. Creatinine Clearance 47 mL/min (70-130); Carbon Dioxide 25 mmol/L (23-31); Chloride 103 mmol/L (98-107); Estimated GFR 39; Glucose 120 mg/dL (83-110); Potassium 4.3 mmol/L (3.5-5.1); Sodium 136 mmol/L (136-145)
[2023-04-25] MEDS: Gabapentin 300 MG CAP PO SCH ×2 (08:54→13:50)
[2023-04-25] MEDS: Famotidine 20 MG TAB PO SCH (08:54)
[2023-04-25] MEDS: Hydrochlorothiazide 25 MG TAB PO SCH (08:54)
[2023-04-25] MEDS: Apixaban 5 MG TAB PO SCH ×2 (08:54→20:56)
[2023-04-25] MEDS: metFORMIN 500 MG TAB PO SCH ×2 (08:54→17:39)
[2023-04-25] MEDS: Carvedilol 3.125 MG TAB PO SCH ×2 (08:54→17:39)
[2023-04-25] MEDS: Spironolactone 25 MG TAB PO SCH (08:54)
[2023-04-25] MEDS: HYDROcodone/Acetaminophen 5/325 mg Tablet PO PRN ×2 (08:57→13:40)
[2023-04-25] MEDS: Sotalol HCl 80 MG TAB PO SCH ×2 (09:29→20:56)
[2023-04-25] MEDS: traMADol HCl 50 MG TAB PO PRN (17:39)
[2023-04-25] MEDS: Gabapentin 100 MG CAP PO SCH (20:55)
[2023-04-25] MEDS: Atorvastatin Calcium 40 MG TAB PO SCH (20:56)
[2023-04-25] MEDS: Sucralfate 1 GM TAB PO SCH (20:56)
[2023-04-26] MEDS: Aspirin 81 mg Enteric Coated Tablet PO SCH (08:33)
[2023-04-26] MEDS: Sucralfate 1 GM TAB PO SCH ×4 (08:33→21:17)
[2023-04-26] MEDS: traMADol HCl 50 MG TAB PO PRN (08:33)
[2023-04-26] MEDS: Apixaban 5 MG TAB PO SCH ×2 (08:33→21:17)
[2023-04-26] MEDS: Gabapentin 100 MG CAP PO SCH ×2 (08:34→21:17)
[2023-04-26] MEDS: Hydrochlorothiazide 25 MG TAB PO SCH (08:34)
[2023-04-26] MEDS: Lidocaine 4% Patch TD SCH (08:34)
[2023-04-26] MEDS: Multivitamin W/ Minerals 1 TAB PO SCH (08:34)
[2023-04-26] MEDS: metFORMIN 500 MG TAB PO SCH ×2 (08:34→17:03)
[2023-04-26] MEDS: Spironolactone 25 MG TAB PO SCH (08:34)
[2023-04-26] MEDS: Famotidine 20 MG TAB PO SCH (08:34)
[2023-04-26] MEDS: Sotalol HCl 80 MG TAB PO SCH ×2 (08:34→21:16)
[2023-04-26] MEDS: Carvedilol 3.125 MG TAB PO SCH ×2 (08:35→17:03)
[2023-04-26] MEDS: HYDROcodone/Acetaminophen 5/325 mg Tablet PO PRN ×2 (13:32→21:21)
[2023-04-26] MEDS: cefTRIAXone\\ROCEPHIN 1 GM in Sodium Chloride 0.9% 100 ML IVPB SCH (17:53)
[2023-04-26] MEDS ORDERED: diphenhydrAMINE 25 MG CAP PO PRN (21:01)
[2023-04-26] MEDS ORDERED: diphenhydrAMINE 30 GM TUBE TOP PRN (21:01)
[2023-04-26] MEDS: Atorvastatin Calcium 40 MG TAB PO SCH (21:17)
[2023-04-26] MEDS: Transdermal Patch Removal TOP SCH (21:24)
[2023-04-27] MEDS: traMADol HCl 50 MG TAB PO PRN ×2 (04:51→15:03)
[2023-04-27] MEDS: HYDROcodone/Acetaminophen 5/325 mg Tablet PO PRN ×2 (06:11→10:17)
[2023-04-27 08:28] LABS: Anion Gap 12 mmol/L (10-20); BUN (Urea Nitrogen) 31 mg/dL (8.4-25.7); Calc. Creatinine Clearance 54 mL/min (70-130); Calcium 9.2 mg/dL (7.8-10.44); Carbon Dioxide 27 mmol/L (23-31); Chloride 103 mmol/L (98-107); Estimated GFR 45; Glucose 119 mg/dL (83-110); Potassium 4.6 mmol/L (3.5-5.1); Sodium 137 mmol/L (136-145)
[2023-04-27] MEDS: metFORMIN 500 MG TAB PO SCH ×2 (08:50→17:50)
[2023-04-27] MEDS: Carvedilol 3.125 MG TAB PO SCH ×2 (08:50→17:50)
[2023-04-27] MEDS: Gabapentin 100 MG CAP PO SCH (08:50)
[2023-04-27] MEDS: Multivitamin W/ Minerals 1 TAB PO SCH (08:50)
[2023-04-27] MEDS: Sotalol HCl 80 MG TAB PO SCH ×2 (08:50→20:58)
[2023-04-27] MEDS: Sucralfate 1 GM TAB PO SCH ×4 (08:50→20:56)
[2023-04-27] MEDS: Spironolactone 25 MG TAB PO SCH (08:50)
[2023-04-27] MEDS: Hydrochlorothiazide 25 MG TAB PO SCH (08:50)
[2023-04-27] MEDS: Famotidine 20 MG TAB PO SCH (08:50)
[2023-04-27] MEDS: Aspirin 81 mg Enteric Coated Tablet PO SCH (08:50)
[2023-04-27] MEDS: Apixaban 5 MG TAB PO SCH ×2 (08:50→20:56)
[2023-04-27] MEDS: Lidocaine 4% Patch TD SCH (10:17)
[2023-04-27] MEDS ORDERED: HYDROcodone/Acetaminophen 5/325 mg Tablet PO PRN (11:22)
[2023-04-27] MEDS ORDERED: Cyclobenzaprine 10 MG TAB PO SCH (11:30)
[2023-04-27] MEDS ORDERED: predniSONE 20 MG TAB PO SCH (11:30)
[2023-04-27] MEDS ORDERED: Gabapentin 100 MG CAP PO SCH ×2 (12:30→21:00)
[2023-04-27] MEDS: Cyclobenzaprine 10 MG TAB PO SCH ×2 (15:02→20:56)
[2023-04-27] MEDS: cefTRIAXone\\ROCEPHIN 1 GM in Sodium Chloride 0.9% 100 ML IVPB SCH (17:50)
[2023-04-27] MEDS: Gabapentin 300 MG CAP PO SCH (20:56)
[2023-04-27] MEDS: Atorvastatin Calcium 40 MG TAB PO SCH (20:58)
[2023-04-27] MEDS: Transdermal Patch Removal TOP SCH (20:59)
[2023-04-28] MEDS: Hydrochlorothiazide 25 MG TAB PO SCH (08:21)
[2023-04-28] MEDS: Sucralfate 1 GM TAB PO SCH ×4 (08:21→21:00)
[2023-04-28] MEDS: Lidocaine 4% Patch TD SCH (08:21)
[2023-04-28] MEDS: Famotidine 20 MG TAB PO SCH (08:21)
[2023-04-28] MEDS: Gabapentin 300 MG CAP PO SCH ×2 (08:21→21:01)
[2023-04-28] MEDS: Cyclobenzaprine 10 MG TAB PO SCH ×3 (08:22→21:01)
[2023-04-28] MEDS: Aspirin 81 mg Enteric Coated Tablet PO SCH (08:22)
[2023-04-28] MEDS: metFORMIN 500 MG TAB PO SCH ×2 (08:22→17:24)
[2023-04-28] MEDS: Spironolactone 25 MG TAB PO SCH (08:22)
[2023-04-28] MEDS: Apixaban 5 MG TAB PO SCH ×2 (08:22→21:01)
[2023-04-28] MEDS: Multivitamin W/ Minerals 1 TAB PO SCH (08:22)
[2023-04-28] MEDS: Sotalol HCl 80 MG TAB PO SCH ×2 (08:22→21:01)
[2023-04-28] MEDS: Carvedilol 3.125 MG TAB PO SCH ×2 (08:22→17:24)
[2023-04-28] MEDS: predniSONE 20 MG TAB PO SCH (08:22)
[2023-04-28] MEDS: HYDROcodone/Acetaminophen 5/325 mg Tablet PO PRN (10:55)
[2023-04-28] MEDS ORDERED: fentaNYL 50 mcg/hour Patch TD SCH (16:30)
[2023-04-28] MEDS: cefTRIAXone\\ROCEPHIN 1 GM in Sodium Chloride 0.9% 100 ML IVPB SCH (17:23)
[2023-04-28] MEDS: Atorvastatin Calcium 40 MG TAB PO SCH (21:01)
[2023-04-28] MEDS: Transdermal Patch Removal TOP SCH (21:02)
[2023-04-28] MEDS: Senokot S 8.6-50 MG TAB PO PRN (21:06)
[2023-04-29] MEDS: Lidocaine 4% Patch TD SCH (08:51)
[2023-04-29] MEDS: Multivitamin W/ Minerals 1 TAB PO SCH (08:52)
[2023-04-29] MEDS: predniSONE 20 MG TAB PO SCH (08:52)
[2023-04-29] MEDS: Gabapentin 300 MG CAP PO SCH ×2 (08:52→14:32)
[2023-04-29] MEDS: Spironolactone 25 MG TAB PO SCH (08:52)
[2023-04-29] MEDS: Carvedilol 3.125 MG TAB PO SCH ×2 (08:52→16:04)
[2023-04-29] MEDS: Aspirin 81 mg Enteric Coated Tablet PO SCH (08:52)
[2023-04-29] MEDS: Sucralfate 1 GM TAB PO SCH ×3 (08:52→16:04)
[2023-04-29] MEDS: Sotalol HCl 80 MG TAB PO SCH (08:53)
[2023-04-29] MEDS: Cyclobenzaprine 10 MG TAB PO SCH ×2 (08:53→14:32)
[2023-04-29] MEDS: Apixaban 5 MG TAB PO SCH (08:53)
[2023-04-29] MEDS: Famotidine 20 MG TAB PO SCH (08:53)
[2023-04-29] MEDS: Hydrochlorothiazide 25 MG TAB PO SCH (08:53)
[2023-04-29] MEDS: metFORMIN 500 MG TAB PO SCH ×2 (08:53→16:04)
[2023-04-29] MEDS: Senokot S 8.6-50 MG TAB PO PRN (08:57)
[2023-04-29] MEDS: HYDROcodone/Acetaminophen 5/325 mg Tablet PO PRN ×2 (08:57→16:07)
[2023-04-29 15:52] VITALS: BP 152/80; TEMP 97.9
[2023-04-29] MEDS: cefTRIAXone\\ROCEPHIN 1 GM in Sodium Chloride 0.9% 100 ML IVPB SCH (16:09)
== END 2023-04-29 17:10 | disposition home or self-care (01) | DRG 552 ==
LOC: ERS 17:27 → T4-B 22:18 → OBSVTOIN 04-26 16:53
PROVIDERS: ADMIT Family Medicine; ATTEND Family Medicine
DX: M54.16 Radiculopathy, lumbar region (principal); N39.0 Urinary tract infection, site not specified; N17.9 Acute kidney failure, unspecified; R45.851 Suicidal ideations; M54.32 Sciatica, left side; B96.1 Klebsiella pneumoniae [K. pneumoniae] as the cause of diseases classified elsewhere; E11.22 Type 2 diabetes mellitus with diabetic chronic kidney disease; I12.9 Hypertensive chronic kidney disease with stage 1 through stage 4 chronic kidney disease, or unspecified chronic kidney disease; N18.9 Chronic kidney disease, unspecified; N40.0 Benign prostatic hyperplasia without lower urinary tract symptoms; E78.5 Hyperlipidemia, unspecified; Z96.659 Presence of unspecified artificial knee joint; I48.91 Unspecified atrial fibrillation; Z79.01 Long term (current) use of anticoagulants; Z79.899 Other long term (current) drug therapy; Z79.82 Long term (current) use of aspirin; Z79.84 Long term (current) use of oral hypoglycemic drugs; Z95.810 Presence of automatic (implantable) cardiac defibrillator; Z95.1 Presence of aortocoronary bypass graft
CPT/HCPCS: 36415; 36416; 72100; 72170; 80048; 80053; 80306; 80307; 81001; 84443; 85025; 87077; 87086; 87186; 93005; 96372; 96374; 96375; G0378; J0696; J1885; J2270; J3360; J3490; J7512

== ENCOUNTER 2023-11-20 10:54 | Outpatient (CLI) | payer BC ==
[2023-11-20 13:26] LABS: Hematocrit 42.3 % (38.8-50.0); Hemoglobin 14.1 g/dL (13.5-17.5); Mean Corpuscular HGB CONC 33.3 g/dL (32.0-36.0); Mean Corpuscular Hemoglobin 31.8 pg (27.0-33.0); Mean Corpuscular Volume 95.5 fl (81.2-95.1); Mean Platelet Volume 11.3 fl (7.4-10.4); Platelet Count 197 10x3/uL (150-450); RBC Distribution Width 13.9 % (11.5-14.5); Red Blood Cell (RBC) Count 4.43 10x6/uL (4.32-5.72); White Blood Cell (WBC) Count 6.5 10x3/uL (3.5-10.5)
[2023-11-20 13:41] LABS: Anion Gap 11 mmol/L (10-20); BUN (Urea Nitrogen) 26 mg/dL (8.4-25.7); Calc. Creatinine Clearance 0 mL/min (70-130); Calcium 9.3 mg/dL (7.8-10.44); Carbon Dioxide 25 mmol/L (23-31); Chloride 109 mmol/L (98-107); Estimated GFR 49; Glucose 101 mg/dL (83-110); Potassium 4.2 mmol/L (3.5-5.1); Sodium 141 mmol/L (136-145)
== END 2023-11-20 10:55 | disposition home or self-care (01) ==
LOC: LABBT 10:54
PROVIDERS: ATTEND Neurological Surgery
DX: Z01.812 Encounter for preprocedural laboratory examination (principal); M54.16 Radiculopathy, lumbar region
CPT/HCPCS: 80048; 85027

== ENCOUNTER 2023-12-19 06:17 | Inpatient (IN) | payer BC, MEDICARE ==
[2023-11-20 11:39] VITALS: BMI 26.4
[2023-12-19 07:50] LABS: #Eosinphils 0.2 thou/uL (0.0-0.7); #Monocytes 0.6 thou/uL (0.11-0.59); #Neutrophils 4.3 thou/uL (1.40-6.50); %Basophils 0.7 % (0.0-1.0); %Eosinophils 3.4 % (0.0-10.0); %Lymphocytes 15.1 % (21.0-51.0); %Monocytes 9.9 % (0.0-10.0); %Neutrophils 70.4 % (42.0-75.0); Hematocrit 41.5 % (42.0-52.0); Hemoglobin 13.6 g/dL (14.0-18.0); Mean Corpuscular HGB CONC 32.8 g/dL (32.0-36.0); Mean Corpuscular Hemoglobin 31.5 pg (27.0-31.0); Mean Corpuscular Volume 96.1 fl (78.0-98.0); Mean Platelet Volume 11.5 fL (7.4-10.4); Platelet Count 172 10x3/uL (130-400); RBC Distribution Width 13.2 % (11.5-14.5); Red Blood Cell (RBC) Count 4.32 mill/uL (4.70-6.10); White Blood Cell (WBC) Count 6.1 10x3/uL (4.8-10.8)
[2023-12-19 08:03] LABS: Anion Gap 11 mmol/L (10-20); BUN (Urea Nitrogen) 31 mg/dL (8.4-25.7); Calc. Creatinine Clearance 58 mL/min (70-130); Calcium 9.2 mg/dL (7.8-10.44); Carbon Dioxide 25 mmol/L (23-31); Chloride 108 mmol/L (98-107); Estimated GFR 56; Glucose 114 mg/dL (83-110); Potassium 4.2 mmol/L (3.5-5.1); Sodium 140 mmol/L (136-145)
[2023-12-19] MEDS ORDERED: Lidocaine 1% PF 5 ML VIAL ONE (08:13)
[2023-12-19] MEDS ORDERED: Rocuronium Bromide 10 MG/ML (10ML VIAL) ONE (08:13)
[2023-12-19] MEDS ORDERED: SUCCINYLCHOLINE/SOD CL,ISO/PF 200 MG/10 ML SYRINGE FS ONE (08:13)
[2023-12-19] MEDS ORDERED: PROPOFOL 20 ML ONE ×2 (08:13→11:50)
[2023-12-19] MEDS ORDERED: fentaNYL PF 100 MCG/2 ML SYRINGE ONE (08:14)
[2023-12-19] MEDS ORDERED: PHENYLEPHRINE-NS 100 MCG/ML 10 ML SYRINGE ONE (08:41)
[2023-12-19] MEDS ORDERED: Bupivacaine 0.25% HCL 30 ML VIAL ONE (08:45)
[2023-12-19] MEDS ORDERED: EPINEPHrine 1 MG/ML VIAL ONE (08:45)
[2023-12-19] MEDS ORDERED: Bupivacaine PF 0.5% 30 ML VIAL ONE (08:48)
[2023-12-19] MEDS ORDERED: CEFAZOLIN 2 GM VIAL ONE (08:49)
[2023-12-19] MEDS ORDERED: Sodium Chloride 0.9% 0 ML ONE (08:49)
[2023-12-19] MEDS ORDERED: Ondansetron PF 4 MG/2 ML Vial ONE (09:39)
[2023-12-19] MEDS ORDERED: SUGAMMADEX SODIUM 200 MG/2 ML VIAL ONE (11:43)
[2023-12-19] MEDS ORDERED: Ondansetron PF 4 MG/2 ML Vial IVP PRN (11:57)
[2023-12-19] MEDS ORDERED: Morphine 2 MG/ML VIAL SLOW IVP PRN (11:57)
[2023-12-19] MEDS ORDERED: Bisacodyl 10 MG SUPP PR PRN (11:57)
[2023-12-19] MEDS ORDERED: diphenhydrAMINE 50 MG/ML VIAL IVP PRN (11:57)
[2023-12-19] MEDS ORDERED: Acetaminophen 500 MG TAB PO PRN (11:58)
[2023-12-19] MEDS ORDERED: Furosemide 40 MG TAB PO PRN (11:58)
[2023-12-19] MEDS ORDERED: fentaNYL 50 mcg/mL 1 mL Vial ONE ×3 (12:14→13:47)
[2023-12-19] MEDS ORDERED: Thrombin 5000 UNITS/5 ML VIAL ONE (12:17)
[2023-12-19] MEDS ORDERED: Tamsulosin HCl 0.4 MG CAP ONE (12:19)
[2023-12-19] MEDS ORDERED: HYDROmorphone 0.5 MG/0.5 ML SYRINGE ONE (12:53)
[2023-12-19] MEDS: Ergocalciferol 1.25 MG(50,000 UNITS) CAP PO SCH (15:03)
[2023-12-19] MEDS: HYDROcodone/Acetaminophen 10/325 mg Tablet PO PRN (15:38)
[2023-12-19] MEDS: Sodium Chloride 0.9% 1,000 ML IV SCH (15:40)
[2023-12-19] MEDS: CEFAZOLIN 2 GM in Sodium Chloride 0.9% 100 ML IVPB SCH (15:40)
[2023-12-19] MEDS: Carvedilol 6.25 MG TAB PO SCH (17:56)
[2023-12-19] MEDS: Zonisamide 100 MG CAP PO SCH (19:53)
[2023-12-19] MEDS: Atorvastatin Calcium 40 MG TAB PO SCH (19:53)
[2023-12-19] MEDS: Sotalol HCl 80 MG TAB PO SCH (19:53)
[2023-12-19] MEDS ORDERED: Non-Formulary Item 1 EACH (Sotalol Hcl [Sotalol] 120 MG Tablet) PO SCH (21:00)
[2023-12-20] MEDS: Cyclobenzaprine 10 MG TAB PO PRN (02:17)
[2023-12-20] MEDS: HYDROcodone/Acetaminophen 10/325 mg Tablet PO PRN (02:19)
[2023-12-20] MEDS: Tamsulosin HCl 0.4 MG CAP PO SCH (05:07)
[2023-12-20 05:18] LABS: #Eosinphils 0.1 thou/uL (0.0-0.7); #Monocytes 0.8 thou/uL (0.11-0.59); #Neutrophils 7.9 thou/uL (1.40-6.50); %Basophils 0.2 % (0.0-1.0); %Eosinophils 0.7 % (0.0-10.0); %Lymphocytes 6.7 % (21.0-51.0); Hematocrit 33.7 % (42.0-52.0); Hemoglobin 10.9 g/dL (14.0-18.0); Mean Corpuscular HGB CONC 32.3 g/dL (32.0-36.0); Mean Corpuscular Hemoglobin 30.8 pg (27.0-31.0); Mean Corpuscular Volume 95.2 fl (78.0-98.0); Mean Platelet Volume 11.2 fL (7.4-10.4); Platelet Count 135 10x3/uL (130-400); RBC Distribution Width 13.1 % (11.5-14.5); Red Blood Cell (RBC) Count 3.54 mill/uL (4.70-6.10); White Blood Cell (WBC) Count 9.4 10x3/uL (4.8-10.8)
[2023-12-20 05:48] LABS: Anion Gap 8 mmol/L (10-20); BUN (Urea Nitrogen) 26 mg/dL (8.4-25.7); Calc. Creatinine Clearance 57 mL/min (70-130); Calcium 8.1 mg/dL (7.8-10.44); Carbon Dioxide 26 mmol/L (23-31); Chloride 107 mmol/L (98-107); Estimated GFR 54; Glucose 161 mg/dL (83-110); Potassium 3.5 mmol/L (3.5-5.1); Sodium 137 mmol/L (136-145)
[2023-12-20] MEDS: Hydrochlorothiazide 25 MG TAB PO SCH (08:14)
[2023-12-20] MEDS: Spironolactone 25 MG TAB PO SCH (08:15)
[2023-12-20] MEDS ORDERED: Non-Formulary Item 1 EACH (Hydrochlorothiazide [Hydrochlorothiazide] 12.5 MG Tablet) PO SCH (09:00)
[2023-12-21] MEDS ORDERED: Polyethylene Glycol 3350 17 GM Packet PO PRN (10:51)
[2023-12-21] MEDS: Dexamethasone 10 MG/ML VIAL SLOW IVP SCH (11:38)
[2023-12-21] MEDS: Diazepam 5 MG TAB PO SCH (11:38)
[2023-12-21] MEDS: Polyethylene Glycol 3350 17 GM Packet PO PRN (11:38)
[2023-12-21] MEDS: Docusate 100 MG CAP PO SCH (20:43)
[2023-12-21] MEDS: Diazepam 5 MG TAB PO PRN (20:43)
[2023-12-21] MEDS: Dexamethasone 4 MG TAB PO SCH (20:43)
[2023-12-22] MEDS: Apixaban 5 MG TAB PO SCH (21:16)
[2023-12-22] MEDS: Dexamethasone 1 MG TAB PO SCH (21:16)
[2023-12-23] MEDS: Aspirin 81 mg Enteric Coated Tablet PO SCH (10:18)
[2023-12-23] MEDS: Dexamethasone 1 MG TAB PO SCH (20:44)
[2023-12-24 11:44] VITALS: BP 121/72; TEMP 97.7
[2023-12-24] MEDS ORDERED: Dexamethasone 1 MG TAB PO SCH (21:00)
== END 2023-12-24 17:35 | DRG 460 ==
LOC: SDC 06:17 → SURG A 11:56
PROVIDERS: ADMIT Neurological Surgery; ATTEND Neurological Surgery
PROC: 00NY0ZZ Release Lumbar Spinal Cord, Open Approach (ICD-10-PCS; principal; 2023-12-19)
PROC: 0SG3071 Fusion of Lumbosacral Joint with Autologous Tissue Substitute, Posterior Approach, Posterior Column, Open Approach (ICD-10-PCS; 2023-12-19)
PROC: 3E033XZ Introduction of Vasopressor into Peripheral Vein, Percutaneous Approach (ICD-10-PCS; 2023-12-19)
DX: M47.26 Other spondylosis with radiculopathy, lumbar region (principal); M48.062 Spinal stenosis, lumbar region with neurogenic claudication; E11.9 Type 2 diabetes mellitus without complications; I10 Essential (primary) hypertension; E78.5 Hyperlipidemia, unspecified; Z86.73 Personal history of transient ischemic attack (TIA), and cerebral infarction without residual deficits; Z95.1 Presence of aortocoronary bypass graft; Z96.652 Presence of left artificial knee joint; Z83.3 Family history of diabetes mellitus; Z87.891 Personal history of nicotine dependence; Z79.82 Long term (current) use of aspirin; Z79.899 Other long term (current) drug therapy; Z79.01 Long term (current) use of anticoagulants; Z79.84 Long term (current) use of oral hypoglycemic drugs
CPT/HCPCS: 36415; 80048; 85025; 93005; 93010; C1713; C1889; J0171; J0665; J1100; J1170; J2405; J2704; J3010; J3490; J7050; J8540

== ENCOUNTER 2024-02-04 16:57 | Inpatient (IN) | payer BC, MEDICARE ==
[2024-02-04] MEDS ORDERED: diphenhydrAMINE 50 MG/ML VIAL ONE (18:16)
[2024-02-04] MEDS ORDERED: Acetaminophen 500 MG TAB ONE (18:16)
[2024-02-04] MEDS ORDERED: Prochlorperazine 10 MG/2 ML VIAL ONE (18:17)
[2024-02-04 18:37] LABS: #Eosinphils 0.2 thou/uL (0.0-0.7); #Monocytes 0.5 thou/uL (0.11-0.59); #Neutrophils 3.9 thou/uL (1.40-6.50); %Basophils 0.5 % (0.0-1.0); %Eosinophils 3.1 % (0.0-10.0); %Lymphocytes 18.7 % (21.0-51.0); %Monocytes 8.6 % (0.0-10.0); %Neutrophils 68.9 % (42.0-75.0); Hematocrit 38.5 % (42.0-52.0); Hemoglobin 12.7 g/dL (14.0-18.0); Mean Corpuscular Hemoglobin 31.6 pg (27.0-31.0); Mean Corpuscular Volume 95.8 fl (78.0-98.0); Mean Platelet Volume 10.7 fL (7.4-10.4); Platelet Count 175 10x3/uL (130-400); RBC Distribution Width 12.9 % (11.5-14.5); Red Blood Cell (RBC) Count 4.02 mill/uL (4.70-6.10); White Blood Cell (WBC) Count 5.7 10x3/uL (4.8-10.8)
[2024-02-04 18:56] LABS: ALT (SGPT) 16 U/L (8-55); AST (SGOT) 13 U/L (5-34); Albumin 3.7 g/dL (3.4-4.8); Alkaline Phosphatase 77 U/L (40-110); Anion Gap 12 mmol/L (10-20); BUN (Urea Nitrogen) 28 mg/dL (8.4-25.7); Bilirubin, Total 0.3 mg/dL (0.2-1.2); Calc. Creatinine Clearance 0 mL/min (70-130); Carbon Dioxide 21 mmol/L (23-31); Chloride 109 mmol/L (98-107); Estimated GFR 54; Globulin 2.6 g/dL (2.4-3.5); Glucose 121 mg/dL (83-110); Lipase 59 U/L (8-78); Potassium 3.6 mmol/L (3.5-5.1); Protein, Total 6.3 g/dL (5.8-8.1)
[2024-02-04 19:00] LABS: Troponin I Less than 0.010 ng/mL (< 0.028)
[2024-02-04 19:04] LABS: Sodium 138 mmol/L (136-145)
[2024-02-04] MEDS ORDERED: Furosemide 40 MG (4 mL) VIAL ONE (20:13)
[2024-02-04 21:59] LABS: Hemoglobin A1c 5.6 % (4.0-6.0)
[2024-02-04 22:07] LABS: Troponin I 0.011 ng/mL (< 0.028)
[2024-02-04] MEDS ORDERED: HumaLOG 300 UNITS/3 ML VIAL SC PRN ×2 (22:23)
[2024-02-04] MEDS ORDERED: Dextrose 50% Abboject 50 ML SYRINGE SLOW IVP PRN (22:23)
[2024-02-04] MEDS ORDERED: Dextrose 5% in Water 1,000 ML IV PRN (22:23)
[2024-02-04] MEDS ORDERED: Glucagon 1 MG/ML KIT IM PRN (22:23)
[2024-02-04 22:25] VITALS: BMI 27.5
[2024-02-05 02:33] LABS: #Eosinphils 0.2 thou/uL (0.0-0.7); #Monocytes 0.6 thou/uL (0.11-0.59); #Neutrophils 3.7 thou/uL (1.40-6.50); %Basophils 0.5 % (0.0-1.0); %Eosinophils 3.2 % (0.0-10.0); %Lymphocytes 19.4 % (21.0-51.0); %Monocytes 11.2 % (0.0-10.0); %Neutrophils 65.5 % (42.0-75.0); Hematocrit 38.9 % (42.0-52.0); Hemoglobin 12.9 g/dL (14.0-18.0); Mean Corpuscular HGB CONC 33.2 g/dL (32.0-36.0); Mean Corpuscular Hemoglobin 30.4 pg (27.0-31.0); Mean Platelet Volume 10.8 fL (7.4-10.4); Platelet Count 161 10x3/uL (130-400); Red Blood Cell (RBC) Count 4.24 mill/uL (4.70-6.10); White Blood Cell (WBC) Count 5.6 10x3/uL (4.8-10.8)
[2024-02-05 02:35] LABS: Mean Corpuscular Volume 91.7 fl (78.0-98.0)
[2024-02-05 02:51] LABS: Anion Gap 10 mmol/L (10-20); BUN (Urea Nitrogen) 27 mg/dL (8.4-25.7); Calc. Creatinine Clearance 53 mL/min (70-130); Calcium 9.2 mg/dL (7.8-10.44); Carbon Dioxide 28 mmol/L (23-31); Cardiac Risk 2.9 (Less than 4.5); Chloride 108 mmol/L (98-107); Cholesterol 111 mg/dl (< 200 Desired); Estimated GFR 47; Glucose 121 mg/dL (83-110); HDL Cholesterol 38 mg/dL (>60 Neg Risk); LDL Cholesterol, Calculated 63 mg/dL; Potassium 4.2 mmol/L (3.5-5.1); Sodium 142 mmol/L (136-145); Triglycerides 52 mg/dL (Less than 150)
[2024-02-05 02:53] LABS: Troponin I 0.033 ng/mL (< 0.028)
[2024-02-05 05:25] LABS: Troponin I 0.016 ng/mL (< 0.028)
[2024-02-05] MEDS ORDERED: Zonisamide 100 MG CAP PO SCH (09:00)
[2024-02-05] MEDS: Aspirin 81 mg Enteric Coated Tablet PO SCH (09:58)
[2024-02-05] MEDS: Hydrochlorothiazide 25 MG TAB PO SCH (09:59)
[2024-02-05] MEDS: Acetaminophen 500 MG TAB PO PRN (10:00)
[2024-02-05] MEDS: Spironolactone 25 MG TAB PO SCH (10:01)
[2024-02-05] MEDS: Apixaban 5 MG TAB PO SCH (10:01)
[2024-02-05] MEDS: Ergocalciferol 1.25 MG(50,000 UNITS) CAP PO SCH (10:02)
[2024-02-05] MEDS: Prochlorperazine 10 MG/2 ML VIAL IVP SCH (12:32)
[2024-02-05] MEDS: diphenhydrAMINE 50 MG/ML VIAL IVP SCH (12:32)
[2024-02-05] MEDS: Prochlorperazine Edisylate 10 MG in Sodium Chloride 0.9% 50 ML IVPB SCH (12:32)
[2024-02-05] MEDS: diphenhydrAMINE 50 MG in Sodium Chloride 0.9% 50 ML IVPB SCH (12:33)
[2024-02-05] MEDS ORDERED: Prochlorperazine 10 MG/2 ML VIAL IVP PRN (12:36)
[2024-02-05] MEDS ORDERED: diphenhydrAMINE 50 MG/ML VIAL IVP PRN (12:36)
[2024-02-05] MEDS: Sotalol HCl 80 MG TAB PO SCH ×3 (14:10→20:08)
[2024-02-05] MEDS: Atorvastatin Calcium 40 MG TAB PO SCH (20:08)
[2024-02-06 05:25] LABS: Anion Gap 12 mmol/L (10-20); BUN (Urea Nitrogen) 29 mg/dL (8.4-25.7); Calc. Creatinine Clearance 55 mL/min (70-130); Calcium 9.1 mg/dL (7.8-10.44); Carbon Dioxide 25 mmol/L (23-31); Chloride 107 mmol/L (98-107); Estimated GFR 51; Glucose 113 mg/dL (83-110); Potassium 3.6 mmol/L (3.5-5.1); Sodium 140 mmol/L (136-145)
[2024-02-06 05:26] LABS: #Eosinphils 0.2 thou/uL (0.0-0.7); #Monocytes 0.5 thou/uL (0.11-0.59); %Basophils 0.7 % (0.0-1.0); %Eosinophils 3.2 % (0.0-10.0); %Lymphocytes 16.7 % (21.0-51.0); %Monocytes 8.9 % (0.0-10.0); %Neutrophils 70.3 % (42.0-75.0); Hematocrit 38.8 % (42.0-52.0); Hemoglobin 12.9 g/dL (14.0-18.0); Mean Corpuscular HGB CONC 33.2 g/dL (32.0-36.0); Mean Corpuscular Hemoglobin 31.1 pg (27.0-31.0); Mean Corpuscular Volume 93.5 fl (78.0-98.0); Mean Platelet Volume 11.1 fL (7.4-10.4); Platelet Count 170 10x3/uL (130-400); Red Blood Cell (RBC) Count 4.15 mill/uL (4.70-6.10); White Blood Cell (WBC) Count 5.7 10x3/uL (4.8-10.8)
[2024-02-06] MEDS ORDERED: ADENOSINE 60 MG/20 ML SDV ONE (10:29)
[2024-02-06] MEDS: Prochlorperazine 10 MG/2 ML VIAL IVP SCH (13:00)
[2024-02-06] MEDS: diphenhydrAMINE 50 MG/ML VIAL IM SCH (13:00)
[2024-02-06 15:16] VITALS: BP 145/81; TEMP 98.3
[2024-02-07] MEDS ORDERED: Sotalol HCl 80 MG TAB PO SCH (09:00)
== END 2024-02-06 16:50 | disposition home or self-care (01) | DRG 313 ==
LOC: ERS 16:57 → 2NO 20:21
PROVIDERS: ADMIT Family Medicine; ATTEND Family Medicine
DX: R07.89 Other chest pain (principal); I13.0 Hypertensive heart and chronic kidney disease with heart failure and stage 1 through stage 4 chronic kidney disease, or unspecified chronic kidney disease; I50.22 Chronic systolic (congestive) heart failure; I25.10 Atherosclerotic heart disease of native coronary artery without angina pectoris; E11.22 Type 2 diabetes mellitus with diabetic chronic kidney disease; N40.0 Benign prostatic hyperplasia without lower urinary tract symptoms; I12.9 Hypertensive chronic kidney disease with stage 1 through stage 4 chronic kidney disease, or unspecified chronic kidney disease; M48.062 Spinal stenosis, lumbar region with neurogenic claudication; Z66 Do not resuscitate; R51.9 Headache, unspecified; E78.5 Hyperlipidemia, unspecified; I25.5 Ischemic cardiomyopathy; I48.0 Paroxysmal atrial fibrillation; I44.7 Left bundle-branch block, unspecified; N18.9 Chronic kidney disease, unspecified; Z95.810 Presence of automatic (implantable) cardiac defibrillator; Z79.82 Long term (current) use of aspirin; Z79.899 Other long term (current) drug therapy; Z86.73 Personal history of transient ischemic attack (TIA), and cerebral infarction without residual deficits; Z95.1 Presence of aortocoronary bypass graft
CPT/HCPCS: 36415; 36416; 70450; 71045; 78452; 80048; 80053; 80061; 83036; 83690; 83735; 83880; 84443; 84484; 85025; 93005; 93017; 96374; 96375; A9502; J0153; J0780; J1200; J1940; J2785